=== PATIENT | female | born 1985 | race Hispanic/Latino ===

== ENCOUNTER 2017-07-31 11:27 | Emergency (ER) | payer MEDICARE ==
[~2017-07-31 11:27] MED LIST: ACET-2247 PO; ACYC400T PO; DOXY100C2 PO; LEVO500T2 PO
[2017-07-31] MEDS ORDERED: TETRACAINE HCL 0.5% 4 ML OPHTH SOLN ONE (11:40)
== END 2017-07-31 12:22 | disposition home or self-care (01) ==
LOC: EDH 11:27
DX: S05.02XA Injury of conjunctiva and corneal abrasion without foreign body, left eye, initial encounter (principal); C81.90 Hodgkin lymphoma, unspecified, unspecified site; Z88.6 Allergy status to analgesic agent; X58.XXXA Exposure to other specified factors, initial encounter; Y93.89 Activity, other specified; Y92.89 Other specified places as the place of occurrence of the external cause; Y99.8 Other external cause status

== ENCOUNTER 2017-08-12 15:54 | Emergency (ER) | payer MEDICARE ==
[2017-08-12 17:04] LABS: APPEARANCE,URINE Clear (CLEAR); BILIRUBIN,URINE Negative (NEGATIVE); COLOR,URINE Yellow (YELLOW); GLUCOSE, URINE (UA) Negative (NEGATIVE); KETONES,URINE Negative (NEGATIVE); LEUKOCYTE ESTERASE ,URINE Small (NEGATIVE); NITRATE,URINE Negative (NEGATIVE); OCCULT BLOOD,URINE Negative (NEGATIVE); PROTEIN,URINE Negative (NEGATIVE); UROBILINOGEN,URINE 0.2 mg/dL (0.2-1.0)
[2017-08-12 17:11] LABS: HCG,QUAL RESULT NEGATIVE (NEGATIVE)
[2017-08-12 17:20] LABS: BACTERIA,URINE Rare /HPF (None Seen); RBC,URINE None Seen /HPF (0-1)
== END 2017-08-12 17:29 | disposition home or self-care (01) ==
LOC: EDH 15:54
DX: R10.31 Right lower quadrant pain (principal); M79.604 Pain in right leg; C81.90 Hodgkin lymphoma, unspecified, unspecified site; Z98.890 Other specified postprocedural states; Z88.6 Allergy status to analgesic agent
CPT/HCPCS: 76882; 81001; 81025

== ENCOUNTER 2017-09-04 13:03 | Emergency (ER) | payer MEDICARE | END 2017-09-04 13:55 | disposition home or self-care (01) | LOC: EDH 13:03 | DX: H11.31 Conjunctival hemorrhage, right eye (principal); C81.90 Hodgkin lymphoma, unspecified, unspecified site; Z88.5 Allergy status to narcotic agent; Z88.6 Allergy status to analgesic agent; Z88.8 Allergy status to other drugs, medicaments and biological substances ==

== ENCOUNTER 2018-01-25 21:40 | Emergency (ER) | payer MEDICARE ==
[2018-01-25] MEDS ORDERED: IBUPROFEN 600 MG TABLET ONE (22:56)
[2018-01-25 23:29] LABS: APPEARANCE,URINE Clear (CLEAR); BILIRUBIN,URINE Negative (NEGATIVE); COLOR,URINE Yellow (YELLOW); GLUCOSE, URINE (UA) Negative (NEGATIVE); KETONES,URINE Negative (NEGATIVE); LEUKOCYTE ESTERASE ,URINE Small (NEGATIVE); NITRATE,URINE Negative (NEGATIVE); OCCULT BLOOD,URINE Negative (NEGATIVE); PROTEIN,URINE Negative (NEGATIVE); UROBILINOGEN,URINE 0.2 mg/dL (0.2-1.0)
[2018-01-25 23:42] LABS: HEMATOCRIT 40.7 % (36-48); MEAN CORPUSCULAR HEMOGLOBIN 30.5 pg (27.0-33.0); MEAN CORPUSCULAR HGB CONC 34.8 g/dL (32.0-36.0); MEAN CORPUSCULAR VOLUME 87.5 fL (79-99); NUCLEATED RED BLOOD CELLS 0.1 % (0.0-0.19); PLATELET COUNT (AUTO) 166 K/uL (130-400); RED BLOOD CELL COUNT(AUTO) 4.65 MIL/uL (4.00-5.50); RED CELL DISTRIBUTION WIDTH 15.3 % (11.0-15.5)
[2018-01-25 23:46] LABS: BACTERIA,URINE Rare /HPF (None Seen); RBC,URINE 0-1 /HPF (0-1)
[2018-01-25 23:49] LABS: ALBUMIN 3.6 g/dL (3.5-5.0); BILIRUBIN,TOTAL 0.4 mg/dL (0.2-1.0); TOTAL PROTEIN, SERUM 7.2 g/dL (6.0-8.3)
[2018-01-26 00:36] LABS: BAND NEUTROPHILS % (MANUAL) 2 % (0-2); EOSINOPHILS % (MANUAL) 3 % (1-6); LYMPHOCYTES % (MANUAL) 38 % (22-44); MAN.DIFF COMMENT-IMPRESSION MANUAL DIFFERENTIAL; MONOCYTES % (MANUAL) 4 % (2-9); SEGMENTED NEUTROPHILS % 53 % (40-70)
== END 2018-01-26 01:00 | disposition home or self-care (01) ==
LOC: EDH 21:40
DX: G44.209 Tension-type headache, unspecified, not intractable (principal); J06.9 Acute upper respiratory infection, unspecified; C81.90 Hodgkin lymphoma, unspecified, unspecified site; Z98.890 Other specified postprocedural states; Z88.6 Allergy status to analgesic agent
CPT/HCPCS: 36415; 80053; 81001; 81025; 85025; 87804

== ENCOUNTER 2018-07-22 00:51 | Emergency (ER) | payer MEDICARE ==
[~2018-07-22 00:51] MED LIST changes: +CEFD300C3 PO
[2018-07-22 02:26] LABS: BASOPHILS % (AUTO) 0.5 % (0.0-5.0); HEMATOCRIT 41.7 % (36-48); LYMPHOCYTES % (AUTO) 21.5 % (21.0-51.0); MEAN CORPUSCULAR HEMOGLOBIN 30.1 pg (27.0-33.0); MEAN CORPUSCULAR HGB CONC 33.9 g/dL (32.0-36.0); MEAN CORPUSCULAR VOLUME 88.8 fL (79-99); MONOCYTES % (AUTO) 6.1 % (3.0-13.0); NEUTROPHILS % (AUTO) 68.9 % (40.0-77.0); PLATELET COUNT (AUTO) 189 K/uL (130-400); RED CELL DISTRIBUTION WIDTH 14.6 % (11.0-15.5); WHITE BLOOD COUNT (AUTO) 10.8 K/uL (4.8-10.8)
[2018-07-22 02:32] LABS: POTASSIUM 3.2 mmol/L (3.5-5.1)
[2018-07-22 02:35] LABS: APPEARANCE,URINE Clear (CLEAR); BILIRUBIN,URINE Negative (NEGATIVE); COLOR,URINE Yellow (YELLOW); GLUCOSE, URINE (UA) Negative (NEGATIVE); KETONES,URINE Negative (NEGATIVE); LEUKOCYTE ESTERASE ,URINE Trace (NEGATIVE); NITRATE,URINE Negative (NEGATIVE); OCCULT BLOOD,URINE Negative (NEGATIVE); PH,URINE 6.5 (5.0-8.0); PROTEIN,URINE Negative (NEGATIVE); UROBILINOGEN,URINE 0.2 mg/dL (0.2-1.0)
[2018-07-22 02:37] LABS: ALBUMIN 3.6 g/dL (3.5-5.0); BILIRUBIN,TOTAL 0.3 mg/dL (0.2-1.0); TOTAL PROTEIN, SERUM 7.3 g/dL (6.0-8.3)
[2018-07-22 02:41] LABS: BACTERIA,URINE None Seen /HPF (None Seen); RBC,URINE None Seen /HPF (0-1); SQUAMOUS EPITHELIAL CELL,UR Rare /HPF (0-2); WBC,URINE 0-1 /HPF (0-1)
[2018-07-22 02:44] LABS: AMPHET/METH SCREEN,URINE NEGATIVE (NEGATIVE); BARBITURATE SCREEN, URINE NEGATIVE (NEGATIVE); BENZODIAZEPINES SCREEN,URINE NEGATIVE (NEGATIVE); CANNABINOID SCREEN,URINE NEGATIVE (NEGATIVE); COCAINE SCREEN,URINE NEGATIVE (NEGATIVE); OPIATE SCREEN,URINE NEGATIVE (NEGATIVE); PHENCYCLIDINE SCREEN,URINE NEGATIVE (NEGATIVE)
[2018-07-22] MEDS ORDERED: POTASSIUM BICARB/CIT AC 25 MEQ TABLET.EFF ONE (03:06)
[2018-07-22] MEDS ORDERED: DIPHENHYDRAMINE HCL 25 MG CAPSULE ONE (03:13)
[2018-07-22] MEDS ORDERED: POTASSIUM CHLORIDE 20 MEQ ERTAB PO ONE (03:13)
== END 2018-07-22 03:44 | disposition home or self-care (01) ==
LOC: EDH 00:51
DX: E87.6 Hypokalemia (principal); C81.90 Hodgkin lymphoma, unspecified, unspecified site; F41.1 Generalized anxiety disorder; R10.13 Epigastric pain; R11.2 Nausea with vomiting, unspecified; Z88.6 Allergy status to analgesic agent; Z88.5 Allergy status to narcotic agent; Z88.8 Allergy status to other drugs, medicaments and biological substances
CPT/HCPCS: 36415; 80053; 80305; 81001; 83690; 85025; 99283; Q0163

== ENCOUNTER 2018-08-20 03:09 | Emergency (ER) | payer MEDICARE ==
[2018-08-20 03:41] LABS: BASOPHILS % (AUTO) 0.6 % (0.0-5.0); EOSINOPHILS % (AUTO) 4.5 % (0.0-8.0); HEMATOCRIT 43.7 % (36-48); LYMPHOCYTES % (AUTO) 37.7 % (21.0-51.0); MEAN CORPUSCULAR HEMOGLOBIN 30.7 pg (27.0-33.0); MEAN CORPUSCULAR HGB CONC 34.6 g/dL (32.0-36.0); MEAN CORPUSCULAR VOLUME 88.7 fL (79-99); NEUTROPHILS % (AUTO) 51.2 % (40.0-77.0); NUCLEATED RED BLOOD CELLS 0.1 % (0.0-0.19); PLATELET COUNT (AUTO) 205 K/uL (130-400); RED BLOOD CELL COUNT(AUTO) 4.92 MIL/uL (4.00-5.50); RED CELL DISTRIBUTION WIDTH 14.3 % (11.0-15.5); WHITE BLOOD COUNT (AUTO) 9.6 K/uL (4.8-10.8)
[2018-08-20 03:44] LABS: APPEARANCE,URINE Clear (CLEAR); BILIRUBIN,URINE Negative (NEGATIVE); COLOR,URINE Yellow (YELLOW); GLUCOSE, URINE (UA) Negative (NEGATIVE); KETONES,URINE Negative (NEGATIVE); LEUKOCYTE ESTERASE ,URINE Large (NEGATIVE); NITRATE,URINE Negative (NEGATIVE); OCCULT BLOOD,URINE Negative (NEGATIVE); PH,URINE 6.5 (5.0-8.0); PROTEIN,URINE Negative (NEGATIVE); UROBILINOGEN,URINE 0.2 mg/dL (0.2-1.0)
[2018-08-20 04:01] LABS: POTASSIUM 3.6 mmol/L (3.5-5.1)
[2018-08-20 04:03] LABS: BACTERIA,URINE None Seen /HPF (None Seen); RBC,URINE None Seen /HPF (0-1); SQUAMOUS EPITHELIAL CELL,UR Few /HPF (0-2)
== END 2018-08-20 04:06 | disposition home or self-care (01) ==
LOC: EDH 03:09
DX: F41.9 Anxiety disorder, unspecified (principal); F43.0 Acute stress reaction; Z98.890 Other specified postprocedural states; Z88.5 Allergy status to narcotic agent; Z88.6 Allergy status to analgesic agent; Z88.8 Allergy status to other drugs, medicaments and biological substances
CPT/HCPCS: 36415; 80048; 81001; 85025; 93005

== ENCOUNTER 2018-08-29 13:10 | Emergency (ER) | payer MEDICARE | END 2018-08-29 15:13 | disposition home or self-care (01) | LOC: EDH 13:10 | DX: G89.29 Other chronic pain (principal); R10.11 Right upper quadrant pain; F41.1 Generalized anxiety disorder; Z88.6 Allergy status to analgesic agent; Z88.8 Allergy status to other drugs, medicaments and biological substances; Z85.71 Personal history of Hodgkin lymphoma | CPT/HCPCS: 99281 ==

== ENCOUNTER 2018-09-06 13:02 | Emergency (ER) | payer MEDICARE ==
[2018-09-06] MEDS ORDERED: SODIUM CHLORIDE 0.9% 1000ML 1,000 ML IV ONE (14:31)
[2018-09-06 14:33] LABS: BASOPHILS % (AUTO) 0.5 % (0.0-5.0); EOSINOPHILS % (AUTO) 0.2 % (0.0-8.0); HEMATOCRIT 43.9 % (36-48); MEAN CORPUSCULAR HEMOGLOBIN 30.5 pg (27.0-33.0); MEAN CORPUSCULAR HGB CONC 34.4 g/dL (32.0-36.0); MEAN CORPUSCULAR VOLUME 88.7 fL (79-99); MONOCYTES % (AUTO) 3.5 % (3.0-13.0); NEUTROPHILS % (AUTO) 76.8 % (40.0-77.0); NUCLEATED RED BLOOD CELLS 0.1 % (0.0-0.19); PLATELET COUNT (AUTO) 165 K/uL (130-400); RED BLOOD CELL COUNT(AUTO) 4.95 MIL/uL (4.00-5.50); RED CELL DISTRIBUTION WIDTH 14.6 % (11.0-15.5)
[2018-09-06 14:34] LABS: APPEARANCE,URINE Clear (CLEAR); BILIRUBIN,URINE Negative (NEGATIVE); COLOR,URINE Yellow (YELLOW); GLUCOSE, URINE (UA) Negative (NEGATIVE); KETONES,URINE Negative (NEGATIVE); LEUKOCYTE ESTERASE ,URINE Trace (NEGATIVE); NITRATE,URINE Negative (NEGATIVE); OCCULT BLOOD,URINE Negative (NEGATIVE); PROTEIN,URINE Negative (NEGATIVE); UROBILINOGEN,URINE 0.2 mg/dL (0.2-1.0)
[2018-09-06 14:41] LABS: HCG,QUAL RESULT NEGATIVE (NEGATIVE)
[2018-09-06 14:59] LABS: BACTERIA,URINE Rare /HPF (None Seen); RBC,URINE None Seen /HPF (0-1); SQUAMOUS EPITHELIAL CELL,UR None Seen /HPF (0-2); WBC,URINE 0-1 /HPF (0-1)
[2018-09-06 15:12] LABS: CREATININE 0.9 mg/dL (0.5-1.5); POTASSIUM 3.5 mmol/L (3.5-5.1)
[2018-09-06 15:21] LABS: BILIRUBIN,TOTAL 0.3 mg/dL (0.2-1.0); TOTAL PROTEIN, SERUM 7.9 g/dL (6.0-8.3)
[2018-09-06] MEDS ORDERED: HYOSCYAMINE SULFATE 0.125 MG TAB.SUBL SL ONE (16:11)
== END 2018-09-06 16:43 | disposition home or self-care (01) ==
LOC: EDH 13:02
DX: N83.299 Other ovarian cyst, unspecified side (principal); Z88.5 Allergy status to narcotic agent; Z88.6 Allergy status to analgesic agent; Z88.8 Allergy status to other drugs, medicaments and biological substances; Z87.891 Personal history of nicotine dependence
CPT/HCPCS: 36415; 74177; 80053; 81001; 81025; 83690; 85025; 99284; J7030

== ENCOUNTER 2018-09-19 20:37 | Emergency (ER) | payer MEDICARE ==
[2018-09-19] MEDS ORDERED: ACETAMINOPHEN EXTRA STRENGTH 500 MG TABLET ONE (23:42)
== END 2018-09-19 23:56 | disposition home or self-care (01) ==
LOC: EDH 20:37
DX: R10.30 Lower abdominal pain, unspecified (principal); F43.22 Adjustment disorder with anxiety; Z88.6 Allergy status to analgesic agent; Z85.71 Personal history of Hodgkin lymphoma; Z88.8 Allergy status to other drugs, medicaments and biological substances
CPT/HCPCS: 99282

== ENCOUNTER 2018-10-03 01:00 | Emergency (ER) | payer MEDICARE ==
[2018-10-03 01:44] LABS: EOSINOPHILS % (AUTO) 2.5 % (0.0-8.0); LYMPHOCYTES % (AUTO) 25.4 % (21.0-51.0); MEAN CORPUSCULAR HEMOGLOBIN 29.9 pg (27.0-33.0); MEAN CORPUSCULAR HGB CONC 33.5 g/dL (32.0-36.0); MEAN CORPUSCULAR VOLUME 89.4 fL (79-99); MONOCYTES % (AUTO) 4.4 % (3.0-13.0); NEUTROPHILS % (AUTO) 66.7 % (40.0-77.0); NUCLEATED RED BLOOD CELLS 0.2 % (0.0-0.19); PLATELET COUNT (AUTO) 179 K/uL (130-400); RED BLOOD CELL COUNT(AUTO) 4.81 MIL/uL (4.00-5.50); RED CELL DISTRIBUTION WIDTH 14.8 % (11.0-15.5); WHITE BLOOD COUNT (AUTO) 12.6 K/uL (4.8-10.8)
[2018-10-03 01:54] LABS: CREATININE 1.2 mg/dL (0.5-1.5); POTASSIUM 3.4 mmol/L (3.5-5.1)
[2018-10-03] MEDS ORDERED: DiphenhydrAMINE HCL 50 MG/ML VIAL ONE (01:56)
[2018-10-03 01:58] LABS: ALBUMIN 3.8 g/dL (3.5-5.0); BILIRUBIN,TOTAL 0.2 mg/dL (0.2-1.0); TOTAL PROTEIN, SERUM 7.7 g/dL (6.0-8.3)
[2018-10-03 02:13] LABS: APPEARANCE,URINE Clear (CLEAR); BILIRUBIN,URINE Negative (NEGATIVE); COLOR,URINE Yellow (YELLOW); GLUCOSE, URINE (UA) Negative (NEGATIVE); KETONES,URINE Negative (NEGATIVE); LEUKOCYTE ESTERASE ,URINE Trace (NEGATIVE); NITRATE,URINE Negative (NEGATIVE); OCCULT BLOOD,URINE Negative (NEGATIVE); PH,URINE 5.5 (5.0-8.0); PROTEIN,URINE Negative (NEGATIVE); UROBILINOGEN,URINE 0.2 mg/dL (0.2-1.0)
[2018-10-03 02:16] LABS: HCG,QUAL RESULT NEGATIVE (NEGATIVE)
[2018-10-03 02:21] LABS: AMPHET/METH SCREEN,URINE NEGATIVE (NEGATIVE); BARBITURATE SCREEN, URINE NEGATIVE (NEGATIVE); BENZODIAZEPINES SCREEN,URINE NEGATIVE (NEGATIVE); CANNABINOID SCREEN,URINE NEGATIVE (NEGATIVE); COCAINE SCREEN,URINE NEGATIVE (NEGATIVE); OPIATE SCREEN,URINE NEGATIVE (NEGATIVE); PHENCYCLIDINE SCREEN,URINE NEGATIVE (NEGATIVE)
[2018-10-03 02:27] LABS: RBC,URINE 0-1 /HPF (0-1)
[2018-10-03 02:28] LABS: BACTERIA,URINE None Seen /HPF (None Seen); SQUAMOUS EPITHELIAL CELL,UR 0-2 /HPF (0-2)
== END 2018-10-03 04:06 | disposition home or self-care (01) ==
LOC: EDH 01:00
DX: R07.89 Other chest pain (principal); F41.1 Generalized anxiety disorder; R00.0 Tachycardia, unspecified; Z98.890 Other specified postprocedural states; Z88.5 Allergy status to narcotic agent; Z88.6 Allergy status to analgesic agent; Z88.8 Allergy status to other drugs, medicaments and biological substances
CPT/HCPCS: 36415; 80053; 80305; 81001; 81025; 82550; 83690; 85025; 87804 ×2; 93005; 96372; 99284; J1200

== ENCOUNTER 2018-10-20 13:40 | Emergency (ER) | payer MEDICARE ==
[2018-10-20] MEDS ORDERED: ONDANSETRON ODT 4 MG TAB ONE (14:20)
[2018-10-20] MEDS ORDERED: FAMOTIDINE 20MG TAB 20 MG TAB ONE (14:20)
[2018-10-20 14:41] LABS: BASOPHILS % (AUTO) 0.9 % (0.0-5.0); EOSINOPHILS % (AUTO) 2.2 % (0.0-8.0); HEMATOCRIT 44.3 % (36-48); LYMPHOCYTES % (AUTO) 28.2 % (21.0-51.0); MEAN CORPUSCULAR HEMOGLOBIN 30.2 pg (27.0-33.0); MEAN CORPUSCULAR HGB CONC 33.9 g/dL (32.0-36.0); MEAN CORPUSCULAR VOLUME 89.1 fL (79-99); MONOCYTES % (AUTO) 6.8 % (3.0-13.0); NEUTROPHILS % (AUTO) 61.9 % (40.0-77.0); NUCLEATED RED BLOOD CELLS 0.1 % (0.0-0.19); PLATELET COUNT (AUTO) 204 K/uL (130-400); RED BLOOD CELL COUNT(AUTO) 4.97 MIL/uL (4.00-5.50); RED CELL DISTRIBUTION WIDTH 14.7 % (11.0-15.5); WHITE BLOOD COUNT (AUTO) 7.5 K/uL (4.8-10.8)
[2018-10-20 14:50] LABS: POTASSIUM 3.7 mmol/L (3.5-5.1)
[2018-10-20 14:57] LABS: ALBUMIN 3.9 g/dL (3.5-5.0); BILIRUBIN,DIRECT 0.1 mg/dL (0.0-0.3); BILIRUBIN,TOTAL 0.3 mg/dL (0.2-1.0)
[2018-10-20 14:58] LABS: APPEARANCE,URINE Clear (CLEAR); BILIRUBIN,URINE Negative (NEGATIVE); COLOR,URINE Yellow (YELLOW); GLUCOSE, URINE (UA) Negative (NEGATIVE); KETONES,URINE Negative (NEGATIVE); LEUKOCYTE ESTERASE ,URINE Trace (NEGATIVE); NITRATE,URINE Negative (NEGATIVE); OCCULT BLOOD,URINE Negative (NEGATIVE); PROTEIN,URINE Negative (NEGATIVE); UROBILINOGEN,URINE 0.2 mg/dL (0.2-1.0)
[2018-10-20 15:01] LABS: HCG,QUAL RESULT NEGATIVE (NEGATIVE)
[2018-10-20 16:56] LABS: RBC,URINE 0-1 /HPF (0-1); WBC,URINE 0-1 /HPF (0-1)
== END 2018-10-20 16:54 | disposition home or self-care (01) ==
LOC: EDH 13:40
DX: K76.0 Fatty (change of) liver, not elsewhere classified (principal); R11.2 Nausea with vomiting, unspecified; R42 Dizziness and giddiness; R19.7 Diarrhea, unspecified; Z85.71 Personal history of Hodgkin lymphoma; Z88.5 Allergy status to narcotic agent; Z88.6 Allergy status to analgesic agent; Z88.8 Allergy status to other drugs, medicaments and biological substances
CPT/HCPCS: 36415; 76705; 80048; 80076; 81001; 81025; 83690; 85025

== ENCOUNTER 2018-11-01 12:07 | Emergency (ER) | payer MEDICARE ==
[2018-11-01 12:43] LABS: APPEARANCE,URINE Clear (CLEAR); BILIRUBIN,URINE Negative (NEGATIVE); COLOR,URINE Yellow (YELLOW); GLUCOSE, URINE (UA) Negative (NEGATIVE); KETONES,URINE Negative (NEGATIVE); LEUKOCYTE ESTERASE ,URINE Moderate (NEGATIVE); NITRATE,URINE Negative (NEGATIVE); OCCULT BLOOD,URINE Negative (NEGATIVE); PH,URINE 5.5 (5.0-8.0); PROTEIN,URINE Negative (NEGATIVE); UROBILINOGEN,URINE 0.2 mg/dL (0.2-1.0)
[2018-11-01 12:49] LABS: HCG,QUAL RESULT NEGATIVE (NEGATIVE)
[2018-11-01 12:54] LABS: BACTERIA,URINE Few /HPF (None Seen); RBC,URINE 0-1 /HPF (0-1); SQUAMOUS EPITHELIAL CELL,UR Few /HPF (0-2)
== END 2018-11-01 15:04 | disposition home or self-care (01) ==
LOC: EDH 12:07
DX: N39.0 Urinary tract infection, site not specified (principal); N83.209 Unspecified ovarian cyst, unspecified side; Z85.71 Personal history of Hodgkin lymphoma; Z88.6 Allergy status to analgesic agent; Z88.5 Allergy status to narcotic agent; Z88.8 Allergy status to other drugs, medicaments and biological substances
CPT/HCPCS: 76856; 81001; 81025

== ENCOUNTER 2018-11-16 01:31 | Emergency (ER) | payer MEDICARE ==
[2018-11-16 02:14] LABS: APPEARANCE,URINE Clear (CLEAR); BILIRUBIN,URINE Negative (NEGATIVE); COLOR,URINE Yellow (YELLOW); GLUCOSE, URINE (UA) Negative (NEGATIVE); KETONES,URINE Negative (NEGATIVE); LEUKOCYTE ESTERASE ,URINE Negative (NEGATIVE); NITRATE,URINE Negative (NEGATIVE); OCCULT BLOOD,URINE Negative (NEGATIVE); PH,URINE 5.5 (5.0-8.0); PROTEIN,URINE Negative (NEGATIVE)
[2018-11-16 02:17] LABS: HCG,QUAL RESULT NEGATIVE (NEGATIVE)
[2018-11-16] MEDS ORDERED: IBUPROFEN 400 MG TABLET ONE (02:32)
[2018-11-16] MEDS ORDERED: IBUPROFEN 200 MG TAB ONE (02:32)
== END 2018-11-16 02:44 | disposition home or self-care (01) ==
LOC: EDH 01:31
DX: R10.31 Right lower quadrant pain (principal); E66.9 Obesity, unspecified; Z98.890 Other specified postprocedural states; Z88.5 Allergy status to narcotic agent; Z88.6 Allergy status to analgesic agent; Z88.8 Allergy status to other drugs, medicaments and biological substances
CPT/HCPCS: 81003; 81025

== ENCOUNTER 2018-12-08 08:30 | Emergency (ER) | payer MEDICARE | END 2018-12-08 09:47 | disposition home or self-care (01) | LOC: EDH 08:30 | DX: N64.4 Mastodynia (principal); Z88.5 Allergy status to narcotic agent; Z88.6 Allergy status to analgesic agent; Z88.8 Allergy status to other drugs, medicaments and biological substances | CPT/HCPCS: 99281 ==

== ENCOUNTER 2018-12-28 01:07 | Emergency (ER) | payer MEDICARE ==
[2018-12-28] MEDS ORDERED: FAMOTIDINE/PF 20 MG/2 ML VIAL IV ONE (02:05)
[2018-12-28] MEDS ORDERED: ONDANSETRON HCL 4 MG/2 ML VIAL ONE (02:05)
[2018-12-28] MEDS ORDERED: SODIUM CHLORIDE 0.9% 1000ML 2,000 ML IV ONE (02:06)
[2018-12-28 02:07] LABS: BASOPHILS % (AUTO) 0.6 % (0.0-5.0); EOSINOPHILS % (AUTO) 3.4 % (0.0-8.0); HEMATOCRIT 38.6 % (36-48); LYMPHOCYTES % (AUTO) 25.8 % (21.0-51.0); MEAN CORPUSCULAR HEMOGLOBIN 30.3 pg (27.0-33.0); MEAN CORPUSCULAR HGB CONC 34.2 g/dL (32.0-36.0); MEAN CORPUSCULAR VOLUME 88.4 fL (79-99); MONOCYTES % (AUTO) 5.7 % (3.0-13.0); NEUTROPHILS % (AUTO) 64.5 % (40.0-77.0); PLATELET COUNT (AUTO) 229 K/uL (130-400); RED BLOOD CELL COUNT(AUTO) 4.37 MIL/uL (4.00-5.50); RED CELL DISTRIBUTION WIDTH 14.1 % (11.0-15.5)
[2018-12-28 02:19] LABS: POTASSIUM 3.2 mmol/L (3.5-5.1)
[2018-12-28 02:24] LABS: ALBUMIN 3.1 g/dL (3.5-5.0); BILIRUBIN,TOTAL 0.3 mg/dL (0.2-1.0); TOTAL PROTEIN, SERUM 7.3 g/dL (6.0-8.3)
[2018-12-28 02:45] LABS: INR 0.95 (0.85-1.15); PARTIAL THROMBOPLASTIN TIME 38.4 SEC (26.3-35.5)
[2018-12-28] MEDS ORDERED: POTASSIUM BICARB/CIT AC 25 MEQ TABLET.EFF ONE (02:57)
[2018-12-28] MEDS ORDERED: POTASSIUM CHLORIDE 20 MEQ ERTAB PO ONE (03:04)
[2018-12-28 03:10] LABS: APPEARANCE,URINE Clear (CLEAR); BILIRUBIN,URINE Negative (NEGATIVE); COLOR,URINE Yellow (YELLOW); GLUCOSE, URINE (UA) Negative (NEGATIVE); KETONES,URINE Negative (NEGATIVE); LEUKOCYTE ESTERASE ,URINE Negative (NEGATIVE); NITRATE,URINE Negative (NEGATIVE); OCCULT BLOOD,URINE Negative (NEGATIVE); PROTEIN,URINE Negative (NEGATIVE)
== END 2018-12-28 03:25 | disposition home or self-care (01) ==
LOC: EDH 01:07
DX: E86.9 Volume depletion, unspecified (principal); R10.13 Epigastric pain; Z88.6 Allergy status to analgesic agent; Z88.5 Allergy status to narcotic agent; Z88.8 Allergy status to other drugs, medicaments and biological substances
CPT/HCPCS: 36415; 80053; 81003; 83605; 83690; 85025; 85610; 85730; 96361; 96374; 96375; 99284; J2405; J3490; J7030

== ENCOUNTER 2019-02-26 11:47 | Emergency (ER) | payer MEDICARE ==
[2019-02-26 12:24] LABS: APPEARANCE,URINE CLOUDY (CLEAR); BILIRUBIN,URINE NEGATIVE (NEGATIVE); COLOR,URINE YELLOW (YELLOW); GLUCOSE, URINE (UA) NEGATIVE (NEGATIVE); KETONES,URINE NEGATIVE (NEGATIVE); LEUKOCYTE ESTERASE ,URINE MODERATE (NEGATIVE); NITRATE,URINE NEGATIVE (NEGATIVE); OCCULT BLOOD,URINE LARGE (NEGATIVE); PROTEIN,URINE 100 mg/dL (NEGATIVE)
[2019-02-26 12:33] LABS: HCG,QUAL RESULT NEGATIVE (NEGATIVE)
[2019-02-26 12:36] LABS: BACTERIA,URINE Rare /HPF (None Seen); SQUAMOUS EPITHELIAL CELL,UR Rare /HPF (0-2); WBC,URINE 51-100 /HPF (0-1)
[2019-02-26] MEDS ORDERED: LIDOCAINE HCL-MPF 1% 2ML VIAL ONE (12:39)
[2019-02-26] MEDS ORDERED: CEFTRIAXONE SODIUM 1 GM ONE (12:40)
[2019-02-26] MEDS ORDERED: PHENAZOPYRIDINE HCL 200 MG TABLET ONE (12:40)
== END 2019-02-26 13:09 | disposition home or self-care (01) ==
LOC: EDH 11:47
DX: N30.00 Acute cystitis without hematuria (principal); Z88.8 Allergy status to other drugs, medicaments and biological substances
CPT/HCPCS: 81001; 81025; 96372; 99284; J0696; J3490

== ENCOUNTER 2019-03-14 04:23 | Emergency (ER) | payer MEDICARE ==
[2019-03-14] MEDS ORDERED: KETOROLAC TROMETHAMINE 30MG/ML ONE (04:52)
[2019-03-14] MEDS ORDERED: HYDROMORPHONE 1 MG/1 ML AMP ONE (04:53)
[2019-03-14] MEDS ORDERED: SODIUM CHLORIDE 0.9% 1000ML 1,000 ML IV ONE (05:04)
[2019-03-14 05:11] LABS: BASOPHILS % (AUTO) 0.7 % (0.0-5.0); LYMPHOCYTES % (AUTO) 21.1 % (21.0-51.0); MEAN CORPUSCULAR HEMOGLOBIN 28.5 pg (27.0-33.0); MEAN CORPUSCULAR HGB CONC 33.7 g/dL (32.0-36.0); MEAN CORPUSCULAR VOLUME 84.6 fL (79-99); NEUTROPHILS % (AUTO) 69.2 % (40.0-77.0); PLATELET COUNT (AUTO) 274 K/uL (130-400); RED BLOOD CELL COUNT(AUTO) 4.37 MIL/uL (4.00-5.50); RED CELL DISTRIBUTION WIDTH 14.9 % (11.0-15.5); WHITE BLOOD COUNT (AUTO) 9.8 K/uL (4.8-10.8)
[2019-03-14 05:22] LABS: POTASSIUM 3.1 mmol/L (3.5-5.1)
[2019-03-14 05:32] LABS: ALBUMIN 3.1 g/dL (3.5-5.0); BILIRUBIN,TOTAL 0.5 mg/dL (0.2-1.0); TOTAL PROTEIN, SERUM 7.7 g/dL (6.0-8.3)
[2019-03-14 05:38] LABS: BILIRUBIN,URINE Negative (NEGATIVE); COLOR,URINE Yellow (YELLOW); GLUCOSE, URINE (UA) Negative (NEGATIVE); KETONES,URINE Negative (NEGATIVE); LEUKOCYTE ESTERASE ,URINE Small (NEGATIVE); NITRATE,URINE Negative (NEGATIVE); OCCULT BLOOD,URINE Negative (NEGATIVE); PH,URINE 6.5 (5.0-8.0); PROTEIN,URINE Negative (NEGATIVE)
[2019-03-14] MEDS ORDERED: ONDANSETRON HCL 4 MG/2 ML VIAL ONE (05:41)
[2019-03-14 05:45] LABS: APPEARANCE,URINE CLEAR (CLEAR)
[2019-03-14 05:57] LABS: BACTERIA,URINE Rare /HPF (None Seen); RBC,URINE 0-1 /HPF (0-1)
== END 2019-03-14 06:53 | disposition home or self-care (01) ==
LOC: EDH 04:23
DX: M79.651 Pain in right thigh (principal); R21 Rash and other nonspecific skin eruption; C81.90 Hodgkin lymphoma, unspecified, unspecified site; Z88.8 Allergy status to other drugs, medicaments and biological substances
CPT/HCPCS: 36415; 80053; 81001; 85025; 96374; 96375; 99285; J1170; J1885; J2405; J7030

== ENCOUNTER 2019-03-31 19:16 | Emergency (ER) | payer MEDICARE ==
[2019-03-31 22:36] LABS: BASOPHILS % (AUTO) 0.7 % (0.0-5.0); EOSINOPHILS % (AUTO) 4.8 % (0.0-8.0); HEMATOCRIT 34.5 % (36-48); MEAN CORPUSCULAR HEMOGLOBIN 28.9 pg (27.0-33.0); MEAN CORPUSCULAR HGB CONC 33.8 g/dL (32.0-36.0); MEAN CORPUSCULAR VOLUME 85.5 fL (79-99); MONOCYTES % (AUTO) 5.5 % (3.0-13.0); NUCLEATED RED BLOOD CELLS 0.1 % (0.0-0.19); PLATELET COUNT (AUTO) 301 K/uL (130-400); RED BLOOD CELL COUNT(AUTO) 4.04 MIL/uL (4.00-5.50); RED CELL DISTRIBUTION WIDTH 15.4 % (11.0-15.5); WHITE BLOOD COUNT (AUTO) 8.8 K/uL (4.8-10.8)
[2019-03-31 22:46] LABS: POTASSIUM 3.1 mmol/L (3.5-5.1)
[2019-03-31 22:48] LABS: ALBUMIN 2.9 g/dL (3.5-5.0)
[2019-03-31 23:07] LABS: BILIRUBIN,TOTAL 0.3 mg/dL (0.2-1.0); TOTAL PROTEIN, SERUM 7.8 g/dL (6.0-8.3)
[2019-03-31] MEDS ORDERED: POTASSIUM BICARB/CIT AC 25 MEQ TABLET.EFF ONE (23:21)
== END 2019-04-01 00:46 | disposition home or self-care (01) ==
LOC: EDH 19:16
DX: R60.0 Localized edema (principal); E87.6 Hypokalemia; Z88.6 Allergy status to analgesic agent; Z88.1 Allergy status to other antibiotic agents; Z88.8 Allergy status to other drugs, medicaments and biological substances; Z98.890 Other specified postprocedural states; Z85.71 Personal history of Hodgkin lymphoma
CPT/HCPCS: 36415; 80053; 85025; 93971

== ENCOUNTER 2019-04-22 03:55 | Emergency (ER) | payer MEDICARE ==
[2019-04-22] MEDS ORDERED: KETOROLAC TROMETHAMINE 30MG/ML ONE (04:37)
== END 2019-04-22 05:38 | disposition home or self-care (01) ==
LOC: EDH 03:55
DX: M79.661 Pain in right lower leg (principal); Z98.890 Other specified postprocedural states; Z88.5 Allergy status to narcotic agent; Z88.6 Allergy status to analgesic agent; Z88.8 Allergy status to other drugs, medicaments and biological substances
CPT/HCPCS: 96372; 99283; J1885

== ENCOUNTER 2019-06-02 21:11 | Emergency (ER) | payer MEDICARE ==
[2019-06-02] MEDS ORDERED: ACETAMINOPHEN 325 MG TAB ONE (21:26)
[2019-06-02] MEDS ORDERED: IPRATROPIUM/ALBUTEROL SULFATE 3 ML SOLUTION IH ONE (21:47)
[2019-06-02 21:54] LABS: RAPID GROUP A STREP NEGATIVE (NEGATIVE)
== END 2019-06-02 22:44 | disposition home or self-care (01) ==
LOC: EDH 21:11
DX: J06.9 Acute upper respiratory infection, unspecified (principal); Z98.890 Other specified postprocedural states; Z88.6 Allergy status to analgesic agent; Z88.8 Allergy status to other drugs, medicaments and biological substances
CPT/HCPCS: 87804; 87880; 94640

== ENCOUNTER 2019-06-30 22:23 | Emergency (ER) | payer MEDICARE ==
[2019-06-30] MEDS ORDERED: ONDANSETRON HCL 4 MG/2 ML VIAL ONE (22:57)
[2019-06-30] MEDS ORDERED: SODIUM CHLORIDE 0.9% 1000ML 1,000 ML IV ONE (23:05)
[2019-06-30] MEDS ORDERED: FAMOTIDINE/PF 20 MG/2 ML VIAL IV ONE (23:05)
[2019-06-30 23:07] LABS: BASOPHILS % (AUTO) 0.3 % (0.0-5.0); EOSINOPHILS % (AUTO) 0.8 % (0.0-8.0); HEMATOCRIT 34.9 % (36-48); LYMPHOCYTES % (AUTO) 12.5 % (21.0-51.0); MEAN CORPUSCULAR HEMOGLOBIN 28.8 pg (27.0-33.0); MEAN CORPUSCULAR HGB CONC 33.1 g/dL (32.0-36.0); MONOCYTES % (AUTO) 5.5 % (3.0-13.0); NEUTROPHILS % (AUTO) 80.9 % (40.0-77.0); PLATELET COUNT (AUTO) 341 K/uL (130-400); RED BLOOD CELL COUNT(AUTO) 4.01 MIL/uL (4.00-5.50); RED CELL DISTRIBUTION WIDTH 16.5 % (11.0-15.5); WHITE BLOOD COUNT (AUTO) 12.7 K/uL (4.8-10.8)
[2019-06-30 23:20] LABS: POTASSIUM 3.1 mmol/L (3.5-5.1)
[2019-06-30 23:24] LABS: ALBUMIN 2.8 g/dL (3.5-5.0); BILIRUBIN,TOTAL 0.4 mg/dL (0.2-1.0); TOTAL PROTEIN, SERUM 7.9 g/dL (6.0-8.3)
[2019-06-30 23:32] LABS: APPEARANCE,URINE Clear (CLEAR); BILIRUBIN,URINE Negative (NEGATIVE); COLOR,URINE Yellow (YELLOW); GLUCOSE, URINE (UA) Negative (NEGATIVE); KETONES,URINE Negative (NEGATIVE); LEUKOCYTE ESTERASE ,URINE Trace (NEGATIVE); NITRATE,URINE Negative (NEGATIVE); OCCULT BLOOD,URINE Negative (NEGATIVE); PH,URINE 7.5 (5.0-8.0); PROTEIN,URINE Negative (NEGATIVE)
[2019-06-30 23:35] LABS: HCG,QUAL RESULT NEGATIVE (NEGATIVE)
[2019-06-30 23:44] LABS: RBC,URINE 0-1 /HPF (0-1)
[2019-06-30 23:45] LABS: BACTERIA,URINE Rare /HPF (None Seen)
[2019-07-01 00:37] LABS: AMPHET/METH SCREEN,URINE NEGATIVE (NEGATIVE); BARBITURATE SCREEN, URINE NEGATIVE (NEGATIVE); BENZODIAZEPINES SCREEN,URINE POSITIVE (NEGATIVE); CANNABINOID SCREEN,URINE NEGATIVE (NEGATIVE); COCAINE SCREEN,URINE NEGATIVE (NEGATIVE); OPIATE SCREEN,URINE NEGATIVE (NEGATIVE); PHENCYCLIDINE SCREEN,URINE NEGATIVE (NEGATIVE)
[2019-07-01] MEDS ORDERED: SODIUM CHLORIDE 0.9% 1000ML 1,000 ML IV ONE (01:33)
== END 2019-07-01 02:28 | disposition home or self-care (01) ==
LOC: EDH 22:23
DX: K29.00 Acute gastritis without bleeding (principal); E86.9 Volume depletion, unspecified; R11.10 Vomiting, unspecified; Z88.8 Allergy status to other drugs, medicaments and biological substances; Z88.5 Allergy status to narcotic agent; Z98.890 Other specified postprocedural states
CPT/HCPCS: 36415; 71045; 80053; 80305; 81001; 81025; 82550; 83605; 83690; 84484; 85025; 93005; 96361 ×2; 96374; 96375; 99285; J2405; J3490; J7030 ×2

== ENCOUNTER 2019-07-19 19:31 | Emergency (ER) | payer MEDICARE ==
[2019-07-19] MEDS ORDERED: ACETAMINOPHEN EXTRA STRENGTH 500 MG TABLET ONE (20:50)
[2019-07-19] MEDS ORDERED: CEFTRIAXONE SODIUM 2 GM VIAL ONE (20:50)
[2019-07-19] MEDS ORDERED: SODIUM CHLORIDE 0.9% 1000ML 2,000 ML IV ONE (20:51)
[2019-07-19 21:01] LABS: BASOPHILS % (AUTO) 0.2 % (0.0-5.0); EOSINOPHILS % (AUTO) 0.4 % (0.0-8.0); HEMATOCRIT 32.4 % (36-48); LYMPHOCYTES % (AUTO) 13.3 % (21.0-51.0); MEAN CORPUSCULAR HGB CONC 31.8 g/dL (32.0-36.0); MEAN CORPUSCULAR VOLUME 84.8 fL (79-99); MONOCYTES % (AUTO) 6.5 % (3.0-13.0); PLATELET COUNT (AUTO) 359 K/uL (130-400); RED BLOOD CELL COUNT(AUTO) 3.82 MIL/uL (4.00-5.50); RED CELL DISTRIBUTION WIDTH 14.9 % (11.0-15.5); WHITE BLOOD COUNT (AUTO) 10.4 K/uL (4.8-10.8)
[2019-07-19 21:04] LABS: APPEARANCE,URINE Clear (CLEAR); BILIRUBIN,URINE Negative (NEGATIVE); COLOR,URINE Yellow (YELLOW); GLUCOSE, URINE (UA) Negative (NEGATIVE); KETONES,URINE Negative (NEGATIVE); LEUKOCYTE ESTERASE ,URINE Small (NEGATIVE); NITRATE,URINE Negative (NEGATIVE); OCCULT BLOOD,URINE Negative (NEGATIVE); PH,URINE 7.5 (5.0-8.0); PROTEIN,URINE Negative (NEGATIVE)
[2019-07-19 21:20] LABS: INR 1.13 (0.85-1.15); PARTIAL THROMBOPLASTIN TIME 36.1 SEC (26.3-35.5); PROTHROMBIN TIME 11.8 SEC (9.6-11.6)
[2019-07-19 21:22] LABS: BACTERIA,URINE Few /HPF (None Seen); MUCUS,URINE None Seen LPF (None Seen); RBC,URINE 0-1 /HPF (0-1); SQUAMOUS EPITHELIAL CELL,UR Few /HPF (0-2)
[2019-07-19 21:39] LABS: ALANINE AMINOTRANSFERASE 17 U/L (12-78); ALBUMIN 2.5 g/dL (3.5-5.0); ASPARTATE AMINOTRANSFERASE 24 U/L (10-37); BILIRUBIN,TOTAL 0.5 mg/dL (0.2-1.0); CARBON DIOXIDE 26 mmol/L (21-32); CHLORIDE 99 mmol/L (101-111); CREATINE KINASE, TOTAL 20 U/L (21-232); CREATININE 0.5 mg/dL (0.5-1.5); GLOMERULAR FILTR. RATE CALC 152 mL/min (>60); GLUCOSE,RANDOM 117 mg/dL (70-105); MYOGLOBIN 23 ng/mL (10-92); SODIUM SERUM 137 mmol/L (136-145); TOTAL PROTEIN, SERUM 7.2 g/dL (6.0-8.3); TROPONIN I < 0.04 ng/mL (0.00-0.06); UREA NITROGEN, BLOOD 5 mg/dL (7-18)
[2019-07-19 21:42] LABS: POTASSIUM 2.9 mmol/L (3.5-5.1)
[2019-07-19] MEDS ORDERED: POTASSIUM BICARB/CIT AC 25 MEQ TABLET.EFF ONE (21:57)
== END 2019-07-20 00:49 | disposition home or self-care (01) ==
LOC: EDH 19:31
DX: J02.9 Acute pharyngitis, unspecified (principal); E86.0 Dehydration; Z98.890 Other specified postprocedural states; Z88.8 Allergy status to other drugs, medicaments and biological substances; Z88.6 Allergy status to analgesic agent
CPT/HCPCS: 36415; 71045; 80053; 81001; 82550; 83605; 83874; 84145; 84484; 85025; 85610; 85730; 87040 ×2; 87088; 87804 ×2; 93005; 96361; 96374; 99285; J0696; J7030

== ENCOUNTER 2019-08-01 19:47 | Emergency (ER) | payer MEDICARE ==
[2019-08-01] MEDS ORDERED: ONDANSETRON ODT 4 MG TAB ONE (20:36)
== END 2019-08-01 22:10 | disposition home or self-care (01) ==
LOC: EDH 19:47
DX: T82.594A Other mechanical complication of infusion catheter, initial encounter (principal); R11.0 Nausea; I10 Essential (primary) hypertension; Z88.8 Allergy status to other drugs, medicaments and biological substances; Z88.6 Allergy status to analgesic agent; Z85.72 Personal history of non-Hodgkin lymphomas; Z98.890 Other specified postprocedural states
CPT/HCPCS: 71045

== ENCOUNTER 2020-01-12 00:19 | Emergency (ER) | payer MEDICARE | END 2020-01-12 01:15 | disposition home or self-care (01) | LOC: EDH 00:19 | DX: M79.18 Myalgia, other site (principal); Z98.890 Other specified postprocedural states; Z88.8 Allergy status to other drugs, medicaments and biological substances; Z88.6 Allergy status to analgesic agent ==

== ENCOUNTER 2020-06-21 17:48 | Emergency (ER) | payer MEDICARE ==
[2020-06-21 18:26] LABS: BASOPHILS % (AUTO) 0.4 % (0.0-5.0); EOSINOPHILS % (AUTO) 2.5 % (0.0-8.0); LYMPHOCYTES % (AUTO) 25.6 % (21.0-51.0); MEAN CORPUSCULAR HEMOGLOBIN 29.5 pg (27.0-33.0); MEAN CORPUSCULAR HGB CONC 34.4 g/dL (32.0-36.0); MEAN CORPUSCULAR VOLUME 85.8 fL (79-99); MONOCYTES % (AUTO) 5.1 % (3.0-13.0); NEUTROPHILS % (AUTO) 66.1 % (40.0-77.0); PLATELET COUNT (AUTO) 200 K/uL (130-400); RED BLOOD CELL COUNT(AUTO) 5.01 MIL/uL (4.00-5.50); RED CELL DISTRIBUTION WIDTH 13.6 % (11.0-15.5); WHITE BLOOD COUNT (AUTO) 9.7 K/uL (4.8-10.8)
[2020-06-21 18:35] LABS: CREATININE 1.1 mg/dL (0.5-1.5); POTASSIUM 3.2 mmol/L (3.5-5.1)
[2020-06-21 18:36] LABS: RAPID GROUP A STREP NEGATIVE (NEGATIVE)
[2020-06-21] MEDS ORDERED: AZITHROMYCIN 250 MG TABLET PO ONE (18:36)
[2020-06-21] MEDS ORDERED: ACETAMINOPHEN-CODEINE 300/30MG TAB ONE (18:36)
[2020-06-21 18:39] LABS: ALBUMIN 3.9 g/dL (3.5-5.0); BILIRUBIN,TOTAL 0.4 mg/dL (0.2-1.0); TOTAL PROTEIN, SERUM 8.4 g/dL (6.0-8.3)
== END 2020-06-21 19:37 | disposition home or self-care (01) ==
LOC: EDH 17:48
DX: J02.9 Acute pharyngitis, unspecified (principal); R00.0 Tachycardia, unspecified; B34.9 Viral infection, unspecified; E86.0 Dehydration; Z98.890 Other specified postprocedural states; Z88.5 Allergy status to narcotic agent; Z88.6 Allergy status to analgesic agent; Z88.8 Allergy status to other drugs, medicaments and biological substances
CPT/HCPCS: 36415; 71045; 80053; 85025; 87426; 87804 ×2; 87880; 96360; 99284; U0003

== ENCOUNTER 2024-04-07 16:06 | Emergency (ER) | payer OTHER, MEDICARE ==
[~2024-04-07] VITALS: Ht 144.8 cm; Wt 59.0 kg
[~2024-04-07 16:06] MED LIST changes: -ACYC400T PO; -CEFD300C3 PO; -DOXY100C2 PO; +HYDR-3421 PO; -LEVO500T2 PO
[2024-04-07 16:38] LABS: HEMATOCRIT 38.9 % (36-48); MEAN CORPUSCULAR HEMOGLOBIN 33.2 pg (27.0-33.0); MEAN CORPUSCULAR HGB CONC 35.7 g/dL (32.0-36.0); MEAN CORPUSCULAR VOLUME 92.8 fL (79-99); RED BLOOD CELL COUNT(AUTO) 4.19 MIL/uL (4.00-5.50); RED CELL DISTRIBUTION WIDTH 12.3 % (11.0-15.5); WHITE BLOOD COUNT (AUTO) 8.4 K/uL (4.8-10.8)
[2024-04-07] MEDS: ONDANSETRON 4MG INJ IVP ONE (16:43)
[2024-04-07] MEDS: 0.9%NACL 1000ML 1,000 ML IV ONE (16:43)
[2024-04-07 16:48] LABS: CREATININE 0.9 mg/dL (0.5-1.0); POTASSIUM 3.8 mmol/L (3.5-5.1)
[2024-04-07] MEDS ORDERED: LOPE2CAP PO (17:53)
[2024-04-07] MEDS ORDERED: ONDA-243 PO (17:53)
[2024-04-07] MEDS ORDERED: LOPERAMIDE HCL 2 MG CAP PO ONE (18:00)
[2024-04-07 18:33] VITALS: BP 118/74; PULSE 77; RESP 19; TEMP 98.6; O2SAT 99
== END 2024-04-07 18:34 | disposition home or self-care (01) ==
LOC: EDH 16:06
DX: K52.1 Toxic gastroenteritis and colitis (principal); T45.1X5A Adverse effect of antineoplastic and immunosuppressive drugs, initial encounter; A08.4 Viral intestinal infection, unspecified; R11.2 Nausea with vomiting, unspecified; Z88.6 Allergy status to analgesic agent; Z88.5 Allergy status to narcotic agent; Z88.8 Allergy status to other drugs, medicaments and biological substances; Z79.899 Other long term (current) drug therapy; Z98.890 Other specified postprocedural states; Z90.49 Acquired absence of other specified parts of digestive tract; Z85.71 Personal history of Hodgkin lymphoma; Y92.89 Other specified places as the place of occurrence of the external cause
CPT/HCPCS: 99283; 96374; 80048; 83690; 85027; 36415; J7030; J2405

== ENCOUNTER 2024-05-06 19:35 | Emergency (ER) | payer OTHER, MEDICARE ==
[~2024-05-06] VITALS: Ht 144.8 cm; Wt 59.0 kg
[~2024-05-06 19:35] MED LIST changes: +LOPE2CAP PO; +ONDA-243 PO
[2024-05-06 19:48] VITALS: BP 115/77; PULSE 90; RESP 18; TEMP 97.8; O2SAT 95
[2024-05-06] MEDS: acetaMINOPHEN 325 MG TAB PO STA (20:18)
== END 2024-05-06 21:34 | disposition home or self-care (01) ==
LOC: EDH 19:35
DX: M79.602 Pain in left arm (principal); Z85.71 Personal history of Hodgkin lymphoma; Z88.5 Allergy status to narcotic agent; Z88.6 Allergy status to analgesic agent; Z90.49 Acquired absence of other specified parts of digestive tract; Z98.890 Other specified postprocedural states
CPT/HCPCS: 73060; 93005

== ENCOUNTER 2024-08-15 18:13 | Emergency (ER) | payer OTHER, MEDICARE ==
[~2024-08-15] VITALS: Ht 144.8 cm; Wt 61.2 kg
--- NOTE | 2024-08-15 18:28 | ERN ---
ED Note History of Present Illness Stated Complaint: VOMITING,NAUSEA Chief Complaint: Dizzy/Light Headed Time Seen by MD: 18:14 Dictation: PATIENT IS A 39-YEAR-OLD FEMALE HERE WITH NON HODGKIN'S LYMPHOMA COMPLAINING OF DIZZINESS AND NAUSEA. SHE STATES HER LAST CHEMOTHERAPY WAS A MONTH AGO IN [facility] SHE SEES , STATES SHE HAS NO HEADACHE NO VOMITING NO DIARRHEA NO CHEST PAIN NO BACK PAIN. SHE HAS A LEFT CHEST PORT-A-CATH IN PLACE. Allergies: Coded Allergies: ibuprofen (Unverified Allergy, Unknown, 04/22/15) ketorolac (Unverified Allergy, Unknown, 05/06/24) lorazepam (Unverified Allergy, Unknown, 04/22/15) morphine (Unverified Allergy, Unknown, 04/22/15) tramadol (Unverified Allergy, Unknown, 04/22/15) Home Meds Active Scripts Ondansetron (Ondansetron Odt) 4 Mg Tab.rapdis, 4 MG PO Q6HPRN PRN for nausea, #16 TAB 0 Refills Prov:AARON TATE NP 08/15/24 Amoxicillin/Potassium Clav (Amox Tr-K Clv 875-125 mg Tab) 875 Mg-125 Mg Tablet, 1 EACH PO BID for 7 Days, #14 TAB 0 Refills Prov:AARON TATE NP 08/15/24 Loperamide HCl (Imodium 2 mg Cap) 2 Mg Capsule, 2 MG PO TID, #15 CAP Prov:ZACH ESTRELLA MD 04/07/24 Ondansetron (Ondansetron Odt) 4 Mg Tab.rapdis, 4 MG PO Q6HPRN for nausea/vomit, #15 TAB Prov:ZACH ESTRELLA MD 04/07/24 Hydroxyzine HCl (Hydroxyzine HCl) 25 Mg Tablet, 25 MG PO BID for 30 Days, #60 TAB Prov:CORNEL ENCARNACION NP 12/01/23 Hydroxyzine HCl (Hydroxyzine HCl) 25 Mg Tablet, 50 MG PO HS for 30 Days, #30 TAB Prov:CORNEL ENCARNACION NP 12/01/23 Reported Medications Acetaminophen (Tylenol) 325 Mg Tablet, 325 MG PO QID PRN for PAIN, TAB 9/28/15 Past Medical History Past Medical History: Other Additional Past Medical Hx: HODGKINS LYMPOMA Surgical History: Cholecystectomy, Other, BTL, Surgical History Other: LEFT KNEE History: Not Applicable RN Note Reviewed/Agreed w/PFSH: Yes Review of System Dictation CONSTITUTIONAL: NEGATIVE EXCEPT FOR HPI HEAD/FACE: NEGATIVE EXCEPT FOR HPI EENT: NEGATIVE EXCEPT FOR HPI RESPIRATORY: NEGATIVE EXCEPT FOR HPI GASTROINTESTINAL/ABDOMINAL: NEGATIVE EXCEPT FOR HPI NAUSEA GENITOURINARY: NEGATIVE EXCEPT FOR HPI MUSCULOSKELETAL: NEGATIVE EXCEPT FOR HPI INTEGUMENTARY: NEGATIVE EXCEPT FOR HPI NEUROLOGICAL/PSYCH: NEGATIVE EXCEPT FOR HPI DIZZINESS HEMATOLOGIC/LYMPHATIC: NEGATIVE EXCEPT FOR HPI ALL SYSTEMS NEGATIVE, EXCEPT NOTED ABOVE. 13 POINT REVIEW OF SYSTEMS ASSESSED AND ALL NEGATIVE EXCEPT FOR ABOVE. Initial Vital Sign VS Vital Signs Date Time Temp Pulse Resp B/P (MAP) Pulse Ox O2 Delivery O2 Flow Rate FiO2 08/15/24 18:22 97.9 87 16 119/74 98 Room Air 0 08/15/24 19:11 21 Physical Exam Dictation VITAL SIGNS REVIEWED GENERAL APPEARANCE: ALERT, ORIENTED X 3, NO ACUTE DISTRESS, WELL DEVELOPED, NOURISHED. HEAD AND FACE: NON-TRAUMATIC. EYES: PERRL, PINK CONJUNCTIVAS, EYELID NO TRAUMA, ANTERIOR CHAMBER WITH ARCUS SENILIS. EARS: PINNAS INTACT AND NO SIGNS OF TRAUMA OR ERYTHEMA EAR CANALS CLEAR AND NO DISCHARGE TM NO ERYTHEMA NOSE: NO DISCHARGE, NO BLEEDING. OROPHARYNX: MOUTH NORMAL, TONGUE PINK, PHARYNX CLEAR,NO ERYTHEMA, TONSILS NO EXUDATES, NO ABSCESSES NOTED, MUCOUS MEMBRANE MOIST NECK: SUPPLE, NON-TENDER, NO THYROMEGALY, NO MASSES, NO JVD, NO BRUITS BREAST:DEFERRED CHEST:NO TENDERNESS, NO CREPITUS, NO PARADOXICAL MOVEMENT, NO RETRACTIONS LUNGS:CLEAR, WELL-VENTILATED, SYMMETRIC, NO RALES, NO WHEEZING, NO RHONCHI, NO STRIDOR, GOOD BREATH SOUNDS BILATERALLY HEART: REGULAR RATE, REGULAR RHYTHM, NO MURMUR, NO GALLOPS VASCULAR: NO PERIPHERAL EDEMA, ABDOMEN: SOFT, POSITIVE BOWEL SOUNDS, NONDISTENDED, NO GUARDING, NONTENDER, NO REBOUND, NO MASSES NO HEPATOMEGALY, NO SPLENOMEGALY, NO PARIKH'S SIGN, NO HERNIAS. RECTAL: DEFERRED GENITAL: DEFERRED NEUROLOGICAL: NORMAL SPEECH, MOTOR FUNCTION INTACT, SENSORY FUNCTION INTACT MUSCULOSKELETAL: NECK NONTENDER, FULL RANGE OF MOTION, BACK NONTENDER, FULL RANGE OF MOTION, EXTREMITIES: NONTENDER, FULL RANGE OF MOTION SKIN: COLOR PINK, DRY, NO TURGOR, NO RASH, NO LACERATIONS, NO ABRASIONS, NO CONTUSIONS. LYMPHATIC: DEFERRED Results (Laboratory/Radiology) Laboratory/Radiology Laboratory Tests Test 08/15/24 18:38 08/15/24 19:10 White Blood Count 6.6 K/uL (4.8-10.8) Red Blood Count 4.54 MIL/uL (4.00-5.50) Hemoglobin 14.0 g/dL (12.0-16.0) Hematocrit 40.8 % (36-48) Mean Corpuscular Volume 89.9 fL (79-99) Mean Corpuscular Hemoglobin 30.8 pg (27.0-33.0) Mean Corpuscular Hemoglobin Concent 34.3 g/dL (32.0-36.0) Red Cell Distribution Width 13.6 % (11.0-15.5) Platelet Count 164 K/uL (130-400) Mean Platelet Volume 9.5 fL (7.5-10.5) Immature Granulocyte % (Auto) 0.3 % (0-1) Neutrophils (%) (Auto) 55.3 % (40.0-77.0) Lymphocytes (%) (Auto) 34.1 % (21.0-51.0) Monocytes (%) (Auto) 4.7 % (3.0-13.0) Eosinophils (%) (Auto) 4.8 % (0.0-8.0) Basophils (%) (Auto) 0.8 % (0.0-5.0) Neutrophils # (Auto) 3.7 K/uL (1.8-7.7) Lymphocytes # (Auto) 2.3 K/uL (1.0-4.8) Monocytes # (Auto) 0.3 K/uL (0.1-1.0) Eosinophils # (Auto) 0.32 K/uL (0.00-0.70) Basophils # (Auto) 0.05 K/uL (0.00-0.20) Absolute Immature Granulocyte (auto 0.02 K/uL (0-1) Nucleated Red Blood Cells 0.0 % (0.0-0.19) Sodium Level 137 mmol/L (136-145) Potassium Level 3.7 mmol/L (3.5-5.1) Chloride Level 101 mmol/L (101-111) Carbon Dioxide Level 29 mmol/L (21-32) Blood Urea Nitrogen 18 mg/dL (7-18) Creatinine 0.7 mg/dL (0.5-1.0) Glomerular Filtration Rate Calc 114 mL/min (>90) Random Glucose 132 mg/dL (70-105) H Total Calcium 9.1 mg/dL (8.5-10.1) Urine Color LIGHT-YELLOW (YELLOW) Urine Appearance CLOUDY (CLEAR) H Urine pH 5.5 (5.0-8.0) Urine Specific [place] 1.016 (1.001-1.031) Urine Protein NEGATIVE mg/dL (NEGATIVE) Urine Glucose (UA) NEGATIVE mg/dL (NEGATIVE) Urine Ketones NEGATIVE mg/dL (NEGATIVE) Urine Occult Blood NEGATIVE (NEGATIVE) Urine Nitrate 2+ (NEGATIVE) H Urine Bilirubin NEGATIVE mg/dL (NEGATIVE) Urine Urobilinogen 0.2 mg/dL (0.2-1.0) Urine Leukocyte Esterase 500 Laxmi/uL (NEGATIVE) H Urine RBC 6-10 /HPF (0-1) H Urine WBC 11-25 /HPF (0-1) H Urine Squamous Epithelial Cells FEW /HPF (0-2) Urine Bacteria MANY /HPF (None Seen) Labs Reviewed?: Yes ED Course ED Course Orders Procedure Category Date Status Time Cbc With Differential LAB 08/15/24 Complete 18:19 Urinalysis Profile LAB 08/15/24 Complete 18:19 0.9%Nacl 1000ml (Ns PHA 08/15/24 Complete 1000ml) 18:30 Ondansetron 4mg Inj PHA 08/15/24 Complete (Zofran 4mg Inj) 18:30 Basic Metabolic Panel LAB 08/15/24 Complete 18:19 *Nursing CPOE 08/15/24 Transmitted Communication: 18:19 Culture Urine TANK 08/15/24 In Process 19:28 Ceftriaxone 1g Vial PHA 08/15/24 Complete (Rocephine 1g Inj) 20:00 Current Medications Medications (Trade) Dose Ordered Sig/Rahul Route PRN Reason Start Time Stop Time Status Last Admin Dose Admin Ceftriaxone Sodium (ROCEphine 1G INJ) 1 gm ONCE ONCE IVP 08/15/24 20:00 08/15/24 20:01 DC 08/15/24 20:15 Ondansetron HCl (zoFRAN 4MG INJ) 4 mg ONCE ONCE IVP 08/15/24 18:30 08/15/24 18:31 DC 08/15/24 18:40 Sodium Chloride 1,000 ml @ 0 mls/hr ONCE ONCE IV 08/15/24 18:30 08/15/24 18:31 DC 08/15/24 18:40 Vital Signs Date Time Temp Pulse Resp B/P (MAP) Pulse Ox O2 Delivery O2 Flow Rate FiO2 08/15/24 20:17 97.5 78 16 123/78 98 Room Air* 0 08/15/24 19:11 97.7 84 16 124/84 98 Room Air* 0 08/15/24 18:22 97.9 87 16 119/74 98 Room Air 0 1945/TREATED FOR ACUTE UTI. NO NAUSEA VOMITING NOW DOWN PATIENT FEELS BETTER AFTER FLUIDS. WE WILL BE DISCHARGED HOME WITH ANTIBIOTICS TOLD TO SEE YOUR PRIMARY CARE DOCTOR. Medical Decision Making MDM MDM: DIFFERENTIAL DIAGNOSIS: NAUSEA VOMITING/ELECTROLYTE IMBALANCE/DEHYDRATION/UTI RATIONALE: TESTS CONSIDERED AND ORDERED SECONDARY TO SHARED DECISION MAKING INCLUDE: LABS PREVIOUS OUTSIDE RECORDS REVIEWED: OLD ER VISITS. REVIEWED RISK OF COMPLICATION AND/OR MORBIDITY OR MORTALITY OF PATIENT MANAGEMENT: NONE MEDICATIONS-PER MEDICATION RECONCILIATION NEED FOR HOSPITALIZATION: PATIENT DOES NOT MEET CRITERIA FOR HOSPITALIZATION. NONE NEED FOR EMERGENCY MAJOR/MINOR SURGERY: NO THERE ARE NO SOCIAL CONCERNS WITH THIS PATIENT. PRESCRIPTION DRUG MANAGEMENT ZOFRAN/AUGMENTIN PRESCRIPTIONS WILL INCLUDE SYMPTOMATIC CARE PATIENT'S PRIOR EXTERNAL MEDICAL RECORDS FROM OTHER ER VISITS WERE REVIEWED BY ME INDICATED. PRIOR TESTING AND RESULTS FROM PREVIOUS VISITS WERE REVIEWED. PRIOR TESTS WERE TAKEN INTO ACCOUNT WITH MEDICAL DECISION MAKING AND RESOURCE UTILIZATION, INDEPENDENT HISTORIAN/HISTORIANS WERE USED TO OBTAIN COMPLETE MEDICAL HISTORY. I INDEPENDENTLY INTERPRETED THE TEST THAT WERE PERFORMED, RESULTS WERE REVIEWED BY ME AND CONSIDERED FINDINGS ON RADIOLOGY IF ORDERED. MEDICAL MANAGEMENT AND EXAMINATION INTERPRETATION DISCUSSIONS WERE HAD BY ME WITH OTHER QUALIFIED HEALTHCARE PROFESSIONALS INDICATED FOR THE PATIENT'S CARE. DX & DISP Disposition: Discharge Departure Impression: Primary Impression: Acute cystitis with hematuria Additional Impressions: Nausea, Hyperglycemia Condition: Stable Scripts Ondansetron (Ondansetron Odt) 4 Mg Tab.rapdis 4 MG PO Q6HPRN PRN for nausea, #16 TAB 0 Refills Prov: AARON TATE TELETYPESETTER 08/15/24 Amoxicillin/Potassium Clav (Amox Tr-K Clv 875-125 mg Tab) 875 Mg-125 Mg Tablet 1 EACH PO BID for 7 Days, #14 TAB 0 Refills Prov: AARON TATE TELETYPESETTER 08/15/24 Additional Instructions: FOLLOW-UP WITH PRIMARY CARE PROVIDER IN 1 TO 2 DAYS. TAKE MEDICATIONS DIRECTED HERE IN THE EMERGENCY ROOM. OKAY TO CONTINUE HOME MEDICATIONS UNLESS OTHERWISE DISCUSSED DURING YOUR VISIT IN THE EMERGENCY ROOM TODAY. RETURN TO YOUR NEAREST EMERGENCY ROOM IF SYMPTOMS WORSEN OR IF THERE IS NO IMPROVEMENT. CALL 911 IF YOU NEED IMMEDIATE ASSISTANCE. TAKE TYLENOL OR MOTRIN [id number] NEEDED AND IF NO CONTRAINDICATIONS ARE PRESENT. INCREASE ORAL HYDRATION. A WOUND CULTURE OR URINE CULTURE WAS ORDERED HERE IN THE EMERGENCY ROOM DEPARTMENT PLEASE FOLLOW-UP WITH PRIMARY CARE PROVIDER AND ADVISE THEM TO GET REPEAT PORTS FROM OUR FACILITY. IF YOU HAD ANY OSCAR WRAP/SPLINTS THAT WERE APPLIED HERE, PLEASE DO NOT REMOVE THEM UNTIL YOU SEE YOUR PRIMARY CARE OR SPECIALTY. TAKE ANTIBIOTICS DIRECTED UNTIL GONE. INCREASE YOUR FLUIDS INTAKE. SEE YOUR PRIMARY CARE DOCTOR FOR FOLLOW UP IN 1-2 DAYS Referrals: CORRIE WHEELER (PCP) Time of Disposition: 19:47 I have reviewed the case, and I agree with, Diagnosis and Plan I performed a substantive portion of the visit. I have reviewed and personally made and approve the management plan that is documented in the notes by myself with GHASSAN/resident. I acknowledged full responsibility for the patient's management plan. AARON TATE NP Aug 15, 2024 18:28 CAMILO QUAN DO Aug 15, 2024 22:54
[2024-08-15] MEDS: ondanSETRON 4MG INJ IVP ONE (18:40)
[2024-08-15] MEDS: 0.9%NACL 1000ML 1,000 ML IV ONE (18:40)
[2024-08-15 18:52] LABS: BASOPHILS # (AUTO) 0.05 K/uL (0.00-0.20); BASOPHILS % (AUTO) 0.8 % (0.0-5.0); EOSINOPHILS # (AUTO) 0.32 K/uL (0.00-0.70); EOSINOPHILS % (AUTO) 4.8 % (0.0-8.0); HEMATOCRIT 40.8 % (36-48); IMMATURE GRANULOCYTE ABSOLUTE 0.02 K/uL (0-1); LYMPHOCYTES # (AUTO) 2.3 K/uL (1.0-4.8); LYMPHOCYTES % (AUTO) 34.1 % (21.0-51.0); MEAN CORPUSCULAR HEMOGLOBIN 30.8 pg (27.0-33.0); MEAN CORPUSCULAR HGB CONC 34.3 g/dL (32.0-36.0); MEAN CORPUSCULAR VOLUME 89.9 fL (79-99); MONOCYTES # (AUTO) 0.3 K/uL (0.1-1.0); MONOCYTES % (AUTO) 4.7 % (3.0-13.0); NEUTROPHILS # (AUTO) 3.7 K/uL (1.8-7.7); NEUTROPHILS % (AUTO) 55.3 % (40.0-77.0); PLATELET COUNT (AUTO) 164 K/uL (130-400); RED BLOOD CELL COUNT(AUTO) 4.54 MIL/uL (4.00-5.50); RED CELL DISTRIBUTION WIDTH 13.6 % (11.0-15.5); WHITE BLOOD COUNT (AUTO) 6.6 K/uL (4.8-10.8)
[2024-08-15 19:00] LABS: CREATININE 0.7 mg/dL (0.5-1.0); POTASSIUM 3.7 mmol/L (3.5-5.1)
--- NOTE | 2024-08-15 19:12 | NUR ---
PT OROIENTED TO ROOM, CALL LIGHT WITHIN REACH
[2024-08-15 19:23] LABS: APPEARANCE,URINE CLOUDY (CLEAR); BILIRUBIN,URINE NEGATIVE (NEGATIVE); COLOR,URINE LIGHT-YELLOW (YELLOW); GLUCOSE, URINE (UA) NEGATIVE (NEGATIVE); KETONES,URINE NEGATIVE (NEGATIVE); LEUKOCYTE ESTERASE ,URINE 500 Leu/uL (NEGATIVE); NITRATE,URINE 2+ (NEGATIVE); OCCULT BLOOD,URINE NEGATIVE (NEGATIVE); PH,URINE 5.5 (5.0-8.0); PROTEIN,URINE NEGATIVE (NEGATIVE); UROBILINOGEN,URINE 0.2 mg/dL (0.2-1.0)
[2024-08-15 19:28] LABS: ADD UA MICROSCOPIC YES
[2024-08-15 19:30] LABS: BACTERIA,URINE MANY /HPF (None Seen); MUCUS,URINE RARE LPF (None Seen); SQUAMOUS EPITHELIAL CELL,UR FEW /HPF (0-2)
[2024-08-15] MEDS ORDERED: ONDA-243 PO (19:48)
[2024-08-15] MEDS ORDERED: AMOX1TAB16 PO (19:48)
--- NOTE | 2024-08-15 20:11 | NUR ---
DELAY IN DISCHARGE DUE TO MEDICATION ADMINISTRATION
[2024-08-15] MEDS: cefTRIAXone 1G VIAL IVP ONE (20:15)
[2024-08-15 20:17] VITALS: BP 123/78; PULSE 78; RESP 16; TEMP 97.6; O2SAT 98
--- NOTE | 2024-08-15 20:18 | NUR ---
PT DENIES DIZZINESS, STATES FLUIDS IMPROVED S/S
--- NOTE | 2024-08-15 20:46 | NUR ---
PORT ACCESS TO LEFT CHEST WALL REMOVED BY SALLY AVILA
== END 2024-08-15 21:00 | disposition home or self-care (01) ==
LOC: EDH 18:13
DX: N30.01 Acute cystitis with hematuria (principal); R11.2 Nausea with vomiting, unspecified; R73.9 Hyperglycemia, unspecified; Z85.71 Personal history of Hodgkin lymphoma; Z88.5 Allergy status to narcotic agent; Z88.6 Allergy status to analgesic agent; Z90.49 Acquired absence of other specified parts of digestive tract; Z98.51 Tubal ligation status
CPT/HCPCS: 99284; 96365; 96361; 96375; 80048; 85025; 87086 ×2; 87186; 81001; 36415; J7030; J0696; J2405

== ENCOUNTER 2024-10-03 16:59 | Emergency (ER) | payer OTHER, MEDICARE ==
[~2024-10-03] VITALS: Ht 149.9 cm; Wt 61.2 kg
[~2024-10-03 16:59] MED LIST changes: +AMOX1TAB16 PO
[2024-10-03 17:02] VITALS: TEMP 98.9
--- NOTE | 2024-10-03 17:54 | ERN ---
ED Note History of Present Illness Stated Complaint: LT ARM PAIN Chief Complaint: Arm Swelling/Redness Time Seen by MD: 17:03 Dictation: History of present illness: 39-year-old female with past medical history of Hodgkin's lymphoma presented to ED with complaints of left armpit pain since yesterday. As per the patient she developed pain over the left axilla, possibly over her existing lymph node and the pain is controlled with ibuprofen 400 mg. Right now she has a pain of 2/10 intensity. No associated shortness of breath,, nausea, vomiting, abdominal pain reported. She is hard of hearing. Her last chemotherapy was in May 2024 ;as per the patient she is a candidate for stem cell transplant. Her oncologist is Dr. Edward Allergies: Coded Allergies: ibuprofen (Unverified Allergy, Unknown, 04/22/15) ketorolac (Unverified Allergy, Unknown, 05/06/24) lorazepam (Unverified Allergy, Unknown, 04/22/15) morphine (Unverified Allergy, Unknown, 04/22/15) tramadol (Unverified Allergy, Unknown, 04/22/15) Home Meds Active Scripts Cephalexin (Cephalexin) 500 Mg Capsule, 1 CAP PO BID for 5 Days, #10 CAP 0 Refills Prov:JONATHAN GALE MD 10/03/24 Ondansetron (Ondansetron Odt) 4 Mg Tab.rapdis, 4 MG PO Q6HPRN PRN for nausea, #16 TAB 0 Refills Prov:AARON TATE SENIOR COMMISSARY AGENT 08/15/24 Amoxicillin/Potassium Clav (Amox Tr-K Clv 875-125 mg Tab) 875 Mg-125 Mg Tablet, 1 EACH PO BID for 7 Days, #14 TAB 0 Refills Prov:AARON TATE SENIOR COMMISSARY AGENT 08/15/24 Loperamide HCl (Imodium 2 mg Cap) 2 Mg Capsule, 2 MG PO TID, #15 CAP Prov:ZACH ESTRELLA MD 04/07/24 Ondansetron (Ondansetron Odt) 4 Mg Tab.rapdis, 4 MG PO Q6HPRN for nausea/vomit, #15 TAB Prov:ZACH ESTRELLA MD 04/07/24 Hydroxyzine HCl (Hydroxyzine HCl) 25 Mg Tablet, 25 MG PO BID for 30 Days, #60 TAB Prov:ALYSHACORNEL SENIOR COMMISSARY AGENT 12/01/23 Hydroxyzine HCl (Hydroxyzine HCl) 25 Mg Tablet, 50 MG PO HS for 30 Days, #30 TAB Prov:CORNEL ENCARNACION SENIOR COMMISSARY AGENT 12/01/23 Reported Medications Acetaminophen (Tylenol) 325 Mg Tablet, 325 MG PO QID PRN for PAIN, TAB 04/22/15 Past Medical History Past Medical History: Other Additional Past Medical Hx: HODGKINS LYMPOMA Surgical History: Cholecystectomy, Other, BTL, Surgical History Other: LEFT KNEE History: Not Applicable Review of System Dictation REVIEW OF SYSTEMS Positive for left armpit pain and swelling. CONSTITUTIONAL: Denies fevers, chills, or night sweats. No unintentional weight loss reported. ENT: No hearing loss, otalgia, otorrhea, rhinitis, rhinorrhea, hoarseness, or sore throat. CARDIOVASCULAR: Denies any exertional angina, dyspnea on exertion, orthopnea, paroxysmal nocturnal dyspnea, palpitations claudication. PULMONARY: Denies any shortness of breath, cough, phlegm / sputum, hemoptysis, pleuritic chest pain. SLEEP: Denies morning headaches, daytime somnolence or napping. Denies diff iculty falling asleep, staying asleep, waking from sleep. Denies knowledge of snoring. GASTROINTESTINAL: Denies any type of dysphagia to either liquids or solids. Denies nausea, vomiting, abdominal pain, diarrhea, constipation, blood in stools . NEUROLOGICAL: Denies headache, motor weakness, sensory deficit, vertigo / spinning sensation, gait abnormalities, or tremors. GENITOURINARY: Denies frequency, urgency, nocturia, hematuria or incontinence, low urinary stream, straining to void, urinary intermittency or hesitancy ENDOCRINOLOGY: Denies polyuria, polydipsia, polyphagia or heat / cold intolerance. HEMATOLOGY: Denies thrombophilia / previous clots, or coagulopathy / bleeding disorders. ONCOLOGIC: Denies personal history of malignancy. DERMATOLOGIC: Denies rashes or pruritus. PSYCHIATRIC: Denies any suicidal or homicidal ideation. Denies hallucinations. Initial Vital Sign VS Vital Signs Date Time Temp Pulse Resp B/P (MAP) Pulse Ox O2 Delivery O2 Flow Rate FiO2 10/03/24 17:02 99.0 94 20 117/77 98 0 10/03/24 18:50 Room Air* 21 Physical Exam Dictation PHYSICAL EXAM GENERAL APPEARANCE: Well nourished . Awake and alert. Oriented to time, place and person. No acute cardiopulmonary distress. HEENT: Head normocephalic , atraumatic. Sclera anicteric . Pupils are round and reactive. Extraocular movements intact . No conjunctival injection. No nasal congestion. No throat congestion .Oral mucosa moist. NECK: Supple. No JVD. No thyromegaly. No submental, submandibular, pre- /postauricular, occipital or supraclavicular lymphadenopathy. No carotid bruits. CHEST: Normal chest expansion. No Telemetry. LUNGS: Clear to auscultation bilaterally . No rales, rhonchi or any wheezing. Equal tactile fremitus. Resonant to percussion . CARDIOVASCULAR: Regular rate and rhythm. S1 and S2 normal. No rubs, murmurs or gallops. ABDOMEN: Soft, nontender, and nondistended. There is no rebound tenderness, voluntary guarding, or rigidity. No hepatosplenomegaly. Bowel sounds normal in all four quadrants . NEUROLOGICAL: Cranial nerves II-XII grossly intact. Motor is 5/5 in bilateral upper and lower extremities . No sensory deficits. EXTREMITIES: No edema, No cyanosis , No clubbing. Good capillary refill. SKIN: No skin breakdown. No rashes or lesions . Left armpit is soft with mild painful inflammation of the soft tissue. No hard lump oral lymph nodes palpated. No abscess palpated PSYCHIATRY: Normal affect .No auditory or visual hallucinations. Normal speech. No dysarthria. Results (Laboratory/Radiology) Laboratory/Radiology Laboratory Tests Test 10/03/24 17:57 White Blood Count 10.3 K/uL (4.8-10.8) Red Blood Count 4.06 MIL/uL (4.00-5.50) Hemoglobin 12.4 g/dL (12.0-16.0) Hematocrit 36.8 % (36-48) Mean Corpuscular Volume 90.6 fL (79-99) Mean Corpuscular Hemoglobin 30.5 pg (27.0-33.0) Mean Corpuscular Hemoglobin Concent 33.7 g/dL (32.0-36.0) Red Cell Distribution Width 13.2 % (11.0-15.5) Platelet Count 232 K/uL (130-400) Mean Platelet Volume 9.3 fL (7.5-10.5) Immature Granulocyte % (Auto) 0.6 % (0-1) Neutrophils (%) (Auto) 79.1 % (40.0-77.0) H Lymphocytes (%) (Auto) 14.0 % (21.0-51.0) L Monocytes (%) (Auto) 3.9 % (3.0-13.0) Eosinophils (%) (Auto) 2.1 % (0.0-8.0) Basophils (%) (Auto) 0.3 % (0.0-5.0) Neutrophils # (Auto) 8.1 K/uL (1.8-7.7) H Lymphocytes # (Auto) 1.4 K/uL (1.0-4.8) Monocytes # (Auto) 0.4 K/uL (0.1-1.0) Eosinophils # (Auto) 0.22 K/uL (0.00-0.70) Basophils # (Auto) 0.03 K/uL (0.00-0.20) Absolute Immature Granulocyte (auto 0.06 K/uL (0-1) Nucleated Red Blood Cells 0.0 % (0.0-0.19) Lactic Acid Level 1.5 mmol/L (0.8-2.5) ED Course ED Course Orders Procedure Category Date Status Time Cbc With Differential LAB 10/03/24 Complete 17:39 Basic Metabolic Panel LAB 10/03/24 In Process 17:39 Lactic Acid LAB 10/03/24 In Process 17:39 Potassium Bicarb/Cit PHA 10/03/24 Verified Ac 25meq (K-Lyte Ta 19:00 Vital Signs Date Time Temp Pulse Resp B/P (MAP) Pulse Ox O2 Delivery O2 Flow Rate FiO2 10/03/24 18:50 88 17 98/68 96 Room Air* 0 21 10/03/24 17:02 99.0 94 20 117/77 98 0 5:30 p.m.: Patient complains of left axillary painful swelling. She has low- grade fever and her pulse rate is 94 per minute. Plan is to request CBC, BNP, lactic acid. At present her pain is 10. 6:30 p.m.: Her white blood counts, red blood counts are within normal limits. She will be discharged on cephalexin. She is required to follow up with her primary care doctor and her oncologist. Medical Decision Making MDM Differential diagnosis : Reactive lymphadenitis, Hodgkin's lymphoma Rationale: Tests considered and ordered secondary to shared decision making include: I will re-evaluate the patient after treatment and diagnostic exams have returned to determine whether they require further testing, can be safely discharged home, or need admission for further treatment and evaluation. Given the social determinants of health affecting care, including literacy, access to medical care, prescription drug management, and [id number] drugs, I will ensure that treatment plans are tailored accordingly. There are no social concerns with this patient. Risk of complication and/or morbidity or mortality of patient management: None Need for hospitalization: Patient does not meet criteria for hospitalization. Need for emergency major/minor surgery: No Prescription drug management Prescriptions will include symptomatic care Medications-Per medication reconciliation Previous outside records reviewed: Old ER visits. Patient's prior external medical records from other ER visits were reviewed by me as indicated. Prior testing and results from previous visits were reviewed. Prior tests were taken into account with medical decision making and resource utilization, independent historian/historians were used to obtain complete medical history. I independently interpreted the test that were performed, results were reviewed by me and considered findings on radiology. Medical management and examination interpretation discussions was done by me with other qualified healthcare professionals as indicated for the patient's care. Revaluation: Lab works are relatively normal. Patient is hemodynamically stable. Disposition : Discharge home DX & DISP Disposition: Discharge Departure Impression: Primary Impression: Hodgkins lymphoma Additional Impressions: Acute lymphadenitis, Hypokalemia Condition: Stable Scripts Cephalexin (Cephalexin) 500 Mg Capsule 1 CAP PO BID for 5 Days, #10 CAP 0 Refills Prov: JONATHAN GALE MD 10/03/24 Additional Instructions: Your labwork showed a milldy low potassium but is otherwise unremarkable. You received potassium here in the ED. Be sure to eat a diet high in potassium. Follow-up with Dr Limon in 1-2 days. You may need further treatment or studies. Take medications as directed here in the emergency room. It is okay to continue home medications unless otherwise discussed during your visit in the emergency room today. Increase oral hydration. If a wound culture or urine culture was ordered here in the emergency room department, please follow-up with primary care provider and advised them to get reports from our facility. If you had any Martín wrap/splints that were applied here placed to not remove them until you see your primary care physician. Return to your nearest emergency room if symptoms worsen or if there is no improvement. Call 911 if you need immediate assistance. Referrals: CORRIE WHEELER (PCP) I performed a substantive portion of the visit. I have reviewed and personally made and approve the management plan that is documented in the notes by myself with GHASSAN/resident. I acknowledged full responsibility for the patient's management plan. JONATHAN GALE MD Oct 03, 2024 17:54 CAMILO QUAN DO Oct 03, 2024 18:55
[2024-10-03 18:21] LABS: BASOPHILS # (AUTO) 0.03 K/uL (0.00-0.20); BASOPHILS % (AUTO) 0.3 % (0.0-5.0); EOSINOPHILS # (AUTO) 0.22 K/uL (0.00-0.70); EOSINOPHILS % (AUTO) 2.1 % (0.0-8.0); HEMATOCRIT 36.8 % (36-48); IMMATURE GRANULOCYTE ABSOLUTE 0.06 K/uL (0-1); LYMPHOCYTES # (AUTO) 1.4 K/uL (1.0-4.8); MEAN CORPUSCULAR HEMOGLOBIN 30.5 pg (27.0-33.0); MEAN CORPUSCULAR HGB CONC 33.7 g/dL (32.0-36.0); MEAN CORPUSCULAR VOLUME 90.6 fL (79-99); MONOCYTES # (AUTO) 0.4 K/uL (0.1-1.0); MONOCYTES % (AUTO) 3.9 % (3.0-13.0); NEUTROPHILS # (AUTO) 8.1 K/uL (1.8-7.7); NEUTROPHILS % (AUTO) 79.1 % (40.0-77.0); PLATELET COUNT (AUTO) 232 K/uL (130-400); RED BLOOD CELL COUNT(AUTO) 4.06 MIL/uL (4.00-5.50); RED CELL DISTRIBUTION WIDTH 13.2 % (11.0-15.5); WHITE BLOOD COUNT (AUTO) 10.3 K/uL (4.8-10.8)
[2024-10-03 18:37] LABS: CREATININE 0.8 mg/dL (0.5-1.0)
[2024-10-03] MEDS ORDERED: CEPH500C2 PO (18:37)
[2024-10-03 18:50] VITALS: BP 98/68; PULSE 88; RESP 17; O2SAT 96
[2024-10-03] MEDS: PoTASSium BIcarbonate/CIT AC 25 MEQ TABLET.EFF PO ONE (19:01)
== END 2024-10-03 19:06 | disposition home or self-care (01) ==
LOC: EDH 16:59
DX: C81.90 Hodgkin lymphoma, unspecified, unspecified site (principal); L04.9 Acute lymphadenitis, unspecified; E87.6 Hypokalemia; Z88.5 Allergy status to narcotic agent; Z88.6 Allergy status to analgesic agent; Z90.49 Acquired absence of other specified parts of digestive tract; Z92.21 Personal history of antineoplastic chemotherapy; Z98.51 Tubal ligation status
CPT/HCPCS: 36415; 80048; 83605; 85025; 99284

== ENCOUNTER 2024-12-10 22:23 | Emergency (ER) | payer OTHER, MEDICAID ==
[~2024-12-10] VITALS: Ht 157.5 cm; Wt 67.1 kg
[~2024-12-10 22:23] MED LIST changes: +AMOX-426 PO; -AMOX1TAB16 PO; +FAMO20TA8 PO; -HYDR-3421 PO; -LOPE2CAP PO; -ONDA-243 PO
[2024-12-10 22:49] LABS: BASOPHILS # (AUTO) 0.07 K/uL (0.00-0.20); BASOPHILS % (AUTO) 0.5 % (0.0-5.0); HEMATOCRIT 23.3 % (36-48); IMMATURE GRANULOCYTE ABSOLUTE 0.46 K/uL (0-1); LYMPHOCYTES # (AUTO) 3.6 K/uL (1.0-4.8); MEAN CORPUSCULAR HEMOGLOBIN 28.5 pg (27.0-33.0); MEAN CORPUSCULAR HGB CONC 34.8 g/dL (32.0-36.0); MONOCYTES # (AUTO) 0.1 K/uL (0.1-1.0); MONOCYTES % (AUTO) 0.5 % (3.0-13.0); NEUTROPHILS # (AUTO) 9.6 K/uL (1.8-7.7); NEUTROPHILS % (AUTO) 69.7 % (40.0-77.0); RED BLOOD CELL COUNT(AUTO) 2.84 MIL/uL (4.00-5.50); RED CELL DISTRIBUTION WIDTH 12.8 % (11.0-15.5); WHITE BLOOD COUNT (AUTO) 13.8 K/uL (4.8-10.8)
[2024-12-10] MEDS: acetaMINOPHEN 500 MG TABLET PO STA (22:55)
[2024-12-10 22:56] LABS: PLATELET COUNT (AUTO) 40 K/uL (130-400)
[2024-12-10 22:57] LABS: POTASSIUM 3.1 mmol/L (3.5-5.1)
--- NOTE | 2024-12-10 23:02 | ERN ---
ED Note History of Present Illness Stated Complaint: LOW BACK PAIN Chief Complaint: Abdominal Pain Time Seen by MD: 22:44 Time Seen by Midlevel: 22:48 Dictation: 39-year-old female with a history of Hodgkin's lymphoma complaining of pain to the right upper and right lower quadrant. Patient states she had chemo on Wednesday, after chemo she has a defects of nausea or vomiting. Patient states today after nausea and vomiting she had pain to the upper right and lower right abdominal pain. Patient states usually it resolves after vomiting but states pain is still there. Allergies: Coded Allergies: ibuprofen (Unverified Allergy, Unknown, 04/22/15) ketorolac (Unverified Allergy, Unknown, 05/06/24) lorazepam (Unverified Allergy, Unknown, 04/22/15) morphine (Unverified Allergy, Unknown, 04/22/15) tramadol (Unverified Allergy, Unknown, 04/22/15) Home Meds Active Scripts Amoxicillin/Potassium Clav (Augmentin 500-125 Tablet) 500 Mg-125 Mg Tablet, 1 TAB PO BID for 7 Days, #14 TAB 0 Refills Prov:MARÍA ESCOTO MD 10/17/24 Famotidine (Famotidine) 20 Mg Tablet, 20 MG PO BID, #14 TAB Prov:MARÍA ESCOTO MD 10/17/24 Reported Medications Acetaminophen (Tylenol) 325 Mg Tablet, 325 MG PO QID PRN for PAIN, TAB 04/22/15 Past Medical History Past Medical History: Other Additional Past Medical Hx: HODGKINS LYMPOMA Surgical History: Cholecystectomy, Other, BTL, Surgical History Other: LEFT KNEE History: Not Applicable Review of System Dictation Constitutional: Negative for fever,chills, and weight loss Eyes: Negative for injury, pain,redness, and discharge ENT: Negative for injury,pain or swelling Cardiovascular: Negative for chest pain, palpitations, and edema Respiratory: Negative for shortness of breath, cough, and wheezing, Abdomen/GI: Complaining of right lower quadrant pain with nausea and vomiting Back: Negative for injury and pain : Negative for injury, bleeding and discharge MS/Extremity: Negative for injury and deformity Skin: Negative for rash, and discoloration Neuro: Negative for headache, weakness, numbness, tingling, and seizure Psych: Negative for suicide ideation, homicidal ideation, and hallucinations Review of Systems: was completed Initial Vital Sign VS Vital Signs Date Time Temp Pulse Resp B/P (MAP) Pulse Ox O2 Delivery O2 Flow Rate FiO2 12/10/24 22:25 99.0 114 22 99/49 97 Room Air 12/10/24 22:43 0 21 Physical Exam Dictation General: awake, alert, NAD Head/Face: Normocephalic, atraumatic Eyes: PERRL, EOMI, vision at baseline ENT: oral cavity clear, TMs clear, no signs of infection Neck: Trachea midline, supple, no nuchal rigidity Cardiovascular: RRR, normal S1/S2, No MRGs, no JVD Respiratory: CTAB, no respiratory distress, No rales or wheezes Abdomen: Soft, tenderness to palpation to the right lower quadrant, non- distended, normal bowel sounds, no guarding or rebound. Skin: Warm, dry, normal turgor, no rash MS/Extremity: Pulses equal, no cyanosis, neurovascular intact, FROM Neuro: COAx4, GCS 15, strength 5/5, CN 2-12 intact, normal cerebellar exam, normal gait, Psych: Normal behavior, mood, and affect normal Results (Laboratory/Radiology) Laboratory/Radiology Laboratory Tests Test 12/10/24 00:10 12/10/24 22:41 Urine Color YELLOW (YELLOW) Urine Appearance CLEAR (CLEAR) Urine pH 5.5 (5.0-8.0) Urine Specific [place] 1.020 (1.001-1.031) Urine Protein NEGATIVE mg/dL (NEGATIVE) Urine Glucose (UA) NEGATIVE mg/dL (NEGATIVE) Urine Ketones NEGATIVE mg/dL (NEGATIVE) Urine Occult Blood NEGATIVE (NEGATIVE) Urine Nitrate NEGATIVE (NEGATIVE) Urine Bilirubin NEGATIVE mg/dL (NEGATIVE) Urine Urobilinogen 0.2 mg/dL (0.2-1.0) Urine Leukocyte Esterase 75 [place]ax[place]/uL (NEGATIVE) H Urine RBC 2-5 /HPF (0-1) H Urine WBC 6-10 /HPF (0-1) H Urine Squamous Epithelial Cells RARE /HPF (0-2) Urine Bacteria None /HPF (None Seen) White Blood Count 13.8 K/uL (4.8-10.8) H Red Blood Count 2.84 MIL/uL (4.00-5.50) L Hemoglobin 8.1 g/dL (12.0-16.0) L Hematocrit 23.3 % (36-48) L Mean Corpuscular Volume 82.0 fL (79-99) Mean Corpuscular Hemoglobin 28.5 pg (27.0-33.0) Mean Corpuscular Hemoglobin Concent 34.8 g/dL (32.0-36.0) Red Cell Distribution Width 12.8 % (11.0-15.5) Platelet Count 40 K/uL (130-400) L Mean Platelet Volume 13.5 fL (7.5-10.5) H Immature Granulocyte % (Auto) 3.3 % (0-1) H Neutrophils (%) (Auto) 69.7 % (40.0-77.0) Lymphocytes (%) (Auto) 26.0 % (21.0-51.0) Monocytes (%) (Auto) 0.5 % (3.0-13.0) L Eosinophils (%) (Auto) 0.0 % (0.0-8.0) Basophils (%) (Auto) 0.5 % (0.0-5.0) Neutrophils # (Auto) 9.6 K/uL (1.8-7.7) H Lymphocytes # (Auto) 3.6 K/uL (1.0-4.8) Monocytes # (Auto) 0.1 K/uL (0.1-1.0) Eosinophils # (Auto) 0.00 K/uL (0.00-0.70) Basophils # (Auto) 0.07 K/uL (0.00-0.20) Absolute Immature Granulocyte (auto 0.46 K/uL (0-1) Nucleated Red Blood Cells 0.0 % (0.0-0.19) Platelet Morphology Comment See comments Sodium Level 141 mmol/L (136-145) Potassium Level 3.1 mmol/L (3.5-5.1) L Chloride Level 102 mmol/L (101-111) Carbon Dioxide Level 25 mmol/L (21-32) Blood Urea Nitrogen 13 mg/dL (7-18) Creatinine 1.0 mg/dL (0.5-1.0) Glomerular Filtration Rate Calc 74 mL/min (>90) Random Glucose 117 mg/dL (70-105) H Total Calcium 8.7 mg/dL (8.5-10.1) Lipase 14 U/L (16-77) L Labs Reviewed?: Yes CT Scan Comment: [facility] [address] [place] [address] IMAGING REPORT Signed PATIENT: DAT RASHEED MR#: [id number] : 1985 SEX: F AGE: 39 LOCATION: [facility] ORDER STATUS: REG ER REPORT#: [id number] SERVICE [id number] REASON: rlq pain, n/v ORDERING PHYSICIAN: JS DSOUZA NP PROCEDURE: ABD PEL WO - CT ABDOMEN/PELVIS W/O CONTRAST CT ABDOMEN/PELVIS W/O CONTRAST HISTORY: Right lower abdominal pain COMPARISON: None TECHNIQUE: Multiple sequential axial images of the abdomen and pelvis were obtained from the dome of the diaphragm through symphysis pubis. Patient was not given contrast through intravenous route. Oral contrast was not given. FINDINGS: No pleural effusion is seen bilaterally. There is no evidence of parenchymal disease or pulmonary nodule of the visualized lower lungs. Degenerative changes of the thoracolumbar spine are present. The heart is not enlarged. Impression fractures are seen worse at T11-T12 with 40% and 70% loss of height respectively. Liver measured 12.5 cm. Post cholecystectomy changes are seen. There is a periumbilical hernia with bowel content. The liver, spleen, adrenal glands and pancreas are unremarkable. There is no evidence of hydronephrosis bilaterally. No evidence of renal stone is seen. Fecal material is seen in the colon. There are normal size retroperitoneal and mesenteric lymph nodes. No ascites is seen. Appendix is not well-seen limiting evaluation. Pelvic sidewalls are symmetric bilaterally. The bladder is poorly distended. There is a right ovarian cyst measuring 4.6 x 3.3 cm the cystic mass not excluded. IMPRESSION: 1. Right ovarian cyst measuring 4.6 x 3.3 cm the cystic mass not excluded. No ascites is seen. CT was performed with one or more following dose reduction techniques: automated exposure control, adjustment of the mA and kv according to patient's size, or use of a iterative reconstruction technique. DICTATED BY: LIANET ALMARAZ MD DATE: 12/11/2430 ELECTRONICALLY SIGNED BY: LIANET ALMARAZ MD DATE: 12/11/24 0036 ED Course ED Course Orders Procedure Category Date Status Time Vital Signs Per CPOE 12/10/24 Transmitted Routine 22:32 Saline Lock Iv CPOE 12/10/24 Transmitted 22:32 Cbc With Differential LAB 12/10/24 Complete 22:32 Lipase LAB 12/10/24 Complete 22:32 Urinalysis Profile LAB 12/10/24 Complete 22:32 Basic Metabolic Panel LAB 12/10/24 Complete 22:32 0.9%Nacl 1000ml (Ns PHA 12/10/24 In Process 1000ml) 22:55 Ondansetron 4mg Inj PHA 12/10/24 Complete (Zofran 4mg Inj) 22:55 Famotidine 20mg Vial PHA 12/10/24 Complete (Pepcid 20mg Vial) 22:55 Acetaminophen 500mg PHA 12/10/24 Complete Tab (Tylenol 500mg T 22:55 Ct Abdomen/Pelvis W/O CT 12/11/24 Resulted Contrast 00:08 Culture Urine TANK 12/11/24 In Process 00:23 Current Medications Medications (Trade) Dose Ordered Sig/Rahul Route PRN Reason Start Time Stop Time Status Last Admin Dose Admin Acetaminophen (TYLenol 500MG TAB) 500 mg ONCE STAT PO 12/10/24 22:55 12/10/24 22:59 DC 12/10/24 22:55 Famotidine (Pepcid 20mg Vial) 20 mg ONCE STAT IV 12/10/24 22:55 12/10/24 22:59 DC 12/10/24 23:06 Ondansetron HCl (zoFRAN 4MG INJ) 4 mg ONCE STAT IVP 12/10/24 22:55 12/10/24 22:59 DC 12/10/24 23:06 Sodium Chloride 1,000 ml @ 100 mls/hr Q10H STAT IV 12/10/24 22:55 12/11/24 08:54 12/10/24 23:06 Vital Signs Date Time Temp Pulse Resp B/P (MAP) Pulse Ox O2 Delivery O2 Flow Rate FiO2 12/10/24 22:43 99.3 116 16 111/78 99 Room Air* 0 21 12/10/24 22:25 99.0 114 22 99/49 97 Room Air Medical Decision Making MDM MDM: 39-year-old female with a history of Hodgkin's lymphoma complaining of pain to the right upper and right lower quadrant. Patient states she had chemo on Wednesday, after chemo she has a defects of nausea or vomiting. Patient states today after nausea and vomiting she had pain to the upper right and lower right abdominal pain. Patient states usually it resolves after vomiting but states pain is still there.CBC shows leukocytosis of 13 this could be related to her nausea and vomiting from the side effect of chemotherapy. Normocytic anemia, hemoglobin is 8.1 hematocrit is 23. Thrombocytopenia at 40. You could be in relation to her recent chemotherapy. Patient isn't complaining of any blood in her vomit or stools. Chemistry shows hypokalemia at 3.1. Replacement given in the emergency room. Normal kidney function. Urine shows leuko esterase of 75 with white count of 60 10 with no bacteria in the urine. Patient is asymptomatic complaining of any dysuria. CT scan of the abdomen shows a right ovarian cyst no ascites, appendix not well seen limited evaluation. CT scan serum to September. After re-evaluation after fluids and medications patient she feels much better and states she is okay to go home and follow up with her oncologist Dr. Brar discussed with the patient precautions to take while her platelets being low. Educated pt to call him in am. Differential diagnosis: Nausea vomiting from chemotherapy, dehydration, SONIYA Rationale: Tests considered and ordered secondary to shared decision making include: Previous outside records reviewed: Old ER visits. Risk of complication and/or morbidity or mortality of patient management: None Medications-Per medication reconciliation Need for hospitalization: Patient does not meet criteria for hospitalization. Need for emergency major/minor surgery: No There are no social concerns with this patient. Prescription drug management Prescriptions will include symptomatic care Patient's prior external medical records from other ER visits were reviewed by me as indicated. Prior testing and results from previous visits were reviewed. Prior tests were taken into account with medical decision making and resource utilization, independent historian/historians were used to obtain complete medical history. I independently interpreted the test that were performed, results were reviewed by me and considered findings on radiology if ordered. Medical management and examination interpretation discussions were had by me with other qualified healthcare professionals as indicated for the patient's care. DX & DISP Disposition: Discharge Decision to Admit Date: December 11, 2024 Decision to Admit Time: 01:00 Departure Impression: Primary Impression: Hypokalemia Additional Impressions: Nausea with vomiting, Hodgkins lymphoma Condition: Stable Additional Instructions: Your platelet count is low, so be careful with bleeding or any trauma. Call your oncologist in the morning. Return to the hospital if you have any worsening symptoms. Referrals: CORRIE WHEELER (PCP) Time of Disposition: 01:00 I have reviewed the case, and I agree with, Diagnosis and Plan JS DSOUZA NP December 10, 2024 23:02
[2024-12-10] MEDS: 0.9%NACL 1000ML 1,000 ML IV STA (23:06)
[2024-12-10] MEDS: FAMOTIDINE 20MG VIAL IV STA (23:06)
[2024-12-10] MEDS: ondanSETRON 4MG INJ IVP STA (23:06)
[2024-12-11 00:19] LABS: APPEARANCE,URINE CLEAR (CLEAR); BILIRUBIN,URINE NEGATIVE (NEGATIVE); COLOR,URINE YELLOW (YELLOW); GLUCOSE, URINE (UA) NEGATIVE (NEGATIVE); KETONES,URINE NEGATIVE (NEGATIVE); LEUKOCYTE ESTERASE ,URINE 75 Leu/uL (NEGATIVE); NITRATE,URINE NEGATIVE (NEGATIVE); OCCULT BLOOD,URINE NEGATIVE (NEGATIVE); PH,URINE 5.5 (5.0-8.0); PROTEIN,URINE NEGATIVE (NEGATIVE); UROBILINOGEN,URINE 0.2 mg/dL (0.2-1.0)
[2024-12-11 00:23] LABS: ADD UA MICROSCOPIC YES
[2024-12-11 00:27] LABS: MUCUS,URINE RARE LPF (None Seen); SQUAMOUS EPITHELIAL CELL,UR RARE /HPF (0-2)
--- NOTE | 2024-12-11 00:36 | HMCIMG ---
CT ABDOMEN/PELVIS W/O CONTRAST HISTORY: Right lower abdominal pain COMPARISON: None TECHNIQUE: Multiple sequential axial images of the abdomen and pelvis were obtained from the dome of the diaphragm through symphysis pubis. Patient was not given contrast through intravenous route. Oral contrast was not given. FINDINGS: No pleural effusion is seen bilaterally. There is no evidence of parenchymal disease or pulmonary nodule of the visualized lower lungs. Degenerative changes of the thoracolumbar spine are present. The heart is not enlarged. Impression fractures are seen worse at T11-T12 with 40% and 70% loss of height respectively. Liver measured 12.5 cm. Post cholecystectomy changes are seen. There is a periumbilical hernia with bowel content. The liver, spleen, adrenal glands and pancreas are unremarkable. There is no evidence of hydronephrosis bilaterally. No evidence of renal stone is seen. Fecal material is seen in the colon. There are normal size retroperitoneal and mesenteric lymph nodes. No ascites is seen. Appendix is not well-seen limiting evaluation. Pelvic sidewalls are symmetric bilaterally. The bladder is poorly distended. There is a right ovarian cyst measuring 4.6 x 3.3 cm the cystic mass not excluded. IMPRESSION: 1. Right ovarian cyst measuring 4.6 x 3.3 cm the cystic mass not excluded. No ascites is seen. CT was performed with one or more following dose reduction techniques: automated exposure control, adjustment of the mA and kv according to patient's size, or use of a iterative reconstruction technique.
[2024-12-11] MEDS: PoTASSium BIcarbonate/CIT AC 25 MEQ TABLET.EFF PO STA (01:45)
[2024-12-11 02:23] VITALS: BP 116/68; PULSE 94; RESP 16; TEMP 98.6; O2SAT 98
== END 2024-12-11 02:25 | disposition home or self-care (01) ==
LOC: EDH 22:23
DX: E87.6 Hypokalemia (principal); C81.90 Hodgkin lymphoma, unspecified, unspecified site; Z90.49 Acquired absence of other specified parts of digestive tract; Z98.890 Other specified postprocedural states; Z88.5 Allergy status to narcotic agent; Z88.6 Allergy status to analgesic agent; Z79.2 Long term (current) use of antibiotics; Z79.899 Other long term (current) drug therapy; Z98.51 Tubal ligation status
CPT/HCPCS: 99285; 96365; 96375; 80048; 83690; 85025; 87086 ×2; 87186; 81001; 36415; 74176; J3490; J7030; J2405